=== PATIENT | male | born 1960 | race Caucasian/White ===

== ENCOUNTER 2024-09-04 13:16 | Inpatient (IN) | payer MEDICAID, OTHER ==
[~2024-09-04] VITALS: Ht 177.8 cm; Wt 102.7 kg
[2024-09-04 13:38] VITALS: RESP 24; O2SAT 92
--- NOTE | 2024-09-04 14:16 | ED.PDOC ---
SOB-HPI HPI Comments 63-year-old male with PMHx COPD presents with a chief complaint of SOB e xacerbation. Patient was a rapid response called overhead, was sating low on room air. Patient has COPD and states that his SOB has been getting worse over the past 2 weeks. Patient is having bilateral wheezing currently, but was placed on supplemental oxygen upon arrival to the ER. Chief Complaint: Shortness of Breath Time Seen by MD: 13:54 Reviewed notes: Medications, Allergies Information Source: Patient Mode of Arrival: Wheelchair Severity: Moderate Timing: Weeks Duration: Since onset Context: At Rest, With Light Exertion PE Risk Factors: None History of: COPD Prehospital treatment: None Past Medical History PAST MEDICAL HISTORY: COPD Surgical History: Denies all surgeries Family History Family History: Reviewed,noncontributory to illness Social History Smoker: Cigarettes Alcohol: Denies ETOH Use Drugs: Denies Drug Use Lives In: Home Constitutional: denies: chills, diaphoresis, fatigue, fever, malaise, sweats, weakness, others EENTM: denies: blurred vision, double vision, ear bleeding, ear discharge, ear drainage, ear pain, ear ringing, eye pain, eye redness, hearing loss, mouth pain, mouth swelling, nasal discharge, nose bleeding, nose congestion, nose pain, photophobia, tearing, throat pain, throat swelling, voice changes, others Respiratory: reports: SOB at rest, shortness of breath, SOB with excertion; denies: cough, hemoptysis, orthopnea, stridor, wheezing, others Cardiovascular: denies: chest pain, dizzy spells, diaphoresis, Dyspnea on exertion, edema, irregular heart beat, left arm pain, lightheadedness, palpitations, PND, syncope, others Gastrointestinal: denies: abdomen distended, abdominal pain, blood streaked bowels, constipated, diarrhea, dysphagia, difficulty swallowing, hematemesis, melena, nausea, poor appetite, poor fluid intake, rectal bleeding, rectal pain, vomiting, others Genitourinary: denies: burning, dysuria, flank pain, frequency, hematuria, incontinence, penile discharge, penile sore, pain, testicle pain, testicle swelling, urgency, others Neurological: denies: dizziness, fainting, headache, left sided numbness, left sided weakness, numbness, paresthesia, pre-existing deficit, right sided numbness, right sided weakness, seizure, speech problems, tingling, tremors, weakness, others Musculoskeletal: denies: back pain, gout, joint pain, joint swelling, muscle pain, muscle stiffness, neck pain, others Integumetry: denies: bruises, change in color, change in hair/nails, dryness, laceration, lesions, lumps, rash, wounds, others Allergic/Immunocompromised: denies: Difficulty Healing, Frequent Infections, Hives, Itching, others Hematologic/Lymphatic: denies: anemia, blood clots, easy bleeding, easy bruising, swollen glands, others Endocrine: denies: excessive hunger, excessive sweating, excessive thirst, excessive urination, flushing, intolerance to cold, intolerance to heat, unexplained weight gain, unexplained weight loss, others Psychiatric: denies: anxiety, bipolar disorder, depression, hopeless, panic disorder, schizophrenia, sleepless, suicidal, others All Other Systems: Reviewed and Negative Physical Exam General Appearance: No Apparent Distress, Normal HEENT: Normal ENT Inspection, Pharynx Normal, TMs Normal Neck: Full Range of Motion, Non-Tender, Normal, Normal Inspection Respiratory: Chest Non-Tender, Decreased Breath Sounds, Respiratory Distress, Wheezing Cardiovascular: No Edema, No JVD, No Murmur, No Gallop, Normal Peripheral Pulses, Regular Rate/Rhythm Breast Exam: Deferred Gastrointestinal: No Organomegaly, Non Tender, No Pulsatile Mass, Normal Bowel Sounds, Soft Genitalia: Deferred Pelvic: Deferred Rectal: Deferred Extremities: No calf tenderness, Normal capillary refill, Normal inspection, Normal range of motion, Non-tender, No pedal edema Musculoskeletal : Apperance: Normal Neurologic: Alert, care team coordinator scheduler II-XII nml as Tested, No Motor Deficits, Normal Affect, Normal Mood, No Sensory Deficits Cerebellar Function: Normal Reflexes: Normal Skin: Dry, Normal Color, Warm Lymphatic: No Adenopathy Was a procedure done? Was a procedure done?: No Differential Dx Differential Diagnosis: Anxiety, Asthma, Bronchitis, CHF, COPD, Hyperventilation, Panic Attack, Pneumonia, Pneumothorax, Respiratory Distress, URI X-Ray, Labs, Meds, VS Vital Signs Date Time Temp Pulse Resp B/P (MAP) Pulse Ox O2 Delivery O2 Flow Rate FiO2 09/04/24 14:38 18 92 Nasal Cannula* 2 28 09/04/24 13:42 98.3 90 24 101/59 (73) 92 98.3 09/04/24 13:38 24 92 Nasal Cannula* 2 28 09/04/24 13:36 94 Nasal Cannula* 2 09/04/24 13:21 96 09/04/24 13:20 98.5 92 26 115/70 (85) 95 98.5 Lab Test 09/04/24 13:17 Range/Units White Blood Count 7.5 4.4-10.8 10^3/uL Red Blood Count 6.07 H 4.5-5.90 10^6/uL Hemoglobin 16.3 13.5-17.5 g/dL Hematocrit 50.4 41.0-53.0 % Mean Corpuscular Volume 83.1 80.0-100.0 fL Mean Corpuscular Hemoglobin 26.8 L 28.0-32.0 pg Mean Corpuscular Hemoglobin Concent 32.2 32.0-36.0 g/dL Red Cell Distribution Width 18.0 H 11.8-14.3 % Platelet Count 296 140-450 10^3/uL Mean Platelet Volume 7.5 6.9-10.8 fL Neutrophils (%) (Auto) 55.0 37.0-80.0 % Lymphocytes (%) (Auto) 23.3 10.0-50.0 % Monocytes (%) (Auto) 14.8 H 0.0-12.0 % Eosinophils (%) (Auto) 6.3 0.0-7.0 % Basophils (%) (Auto) 0.6 0.0-2.0 % Neutrophils # (Auto) 4.1 1.6-8.6 10 ^3/uL Lymphocytes # (Auto) 1.7 0.4-5.4 10 ^3/uL Monocytes # (Auto) 1.1 0-1.3 10 ^3/uL Eosinophils # (Auto) 0.5 0-0.8 10 ^3/uL Basophils # (Auto) 0 0-0.2 10 ^3/uL Nucleated Red Blood Cells 0.2 % Sodium Level 144 136-145 mmol/L Potassium Level 4.1 3.5-5.1 mmol/L Chloride Level 107 98-107 mmol/L Carbon Dioxide Level 27 20-31 mmol/L Anion Gap 10 5-15 Blood Urea Nitrogen 14 9-23 mg/dL Creatinine 1.03 0.700-1.30 mg/dL Glomerular Filtration Rate Calc 81 >90 mL/min BUN/Creatinine Ratio 13.6 10.0-20.0 Serum Glucose 108 H 74-106 mg/dL Calcium Level 10.1 8.7-10.4 mg/dL Current Medications Medications (Trade) Dose Ordered Sig/Johana Route Start Time Stop Time Status Last Admin Albuterol (Ventolin Medneb) 20 mg ONCE ONCE NEB 09/04/24 14:15 09/04/24 14:16 DC 09/04/24 14:37 Ipratropium [place] (Atrovent Medneb) 0.5 mg ONCE ONCE NEB 09/04/24 14:15 09/04/24 14:16 DC 09/04/24 14:37 Time of 1ST Reevaluation: 14:24 Reevaluation 1ST: Unchanged Time of 2ND Reevaluation: 16:32 Reevaluation 2ND: Resolved Patient Education/Counseling: Diagnosis, Treatment, Prognosis, Need For Follow Up Family Education/Counseling: No Family Present Additional Information pt was wheezing throughout, but he also smoked. after treatments, he is now cl ear and sleeping. he wakes up easily and denies any symptoms. he also agreed to stop smoking. he is stable for discharge Departure 1 Departure Time of Disposition: 16:33 Impression: Primary Impression: COPD exacerbation Additional Impressions: Tobacco abuse Tobacco abuse counseling Disposition: 01 HOME / SELF CARE / HOMELESS Condition: Good e-Prescriptions Prednisone (Prednisone) 20 Mg Tab 20 MG PO DAILY for 5 Days, #5 TAB Prov: NEENA KUMAR MD 09/04/24 Discharged With: Self Critical Care Note Critical Care Time?: No Stability Stability form required: No Heart Score Heart Score: Heart Score Response (Comments) Value History N/A 0 EKG N/A 0 Age N/A 0 Risk Factors N/A 0 Troponin N/A 0 Total 0 I personally scribed for NEENA KUMAR MD ([email or web address]) on 09/04/24 at 14:15. Electronically submitted by Emmett Scott ([email or web address]). NEENA KUMAR MD September 04, 2024 14:15
[2024-09-04 14:28] LABS: Potassium 4.1 mmol/L (3.5-5.1); Sodium 144 mmol/L (136-145)
[2024-09-04 14:29] LABS: Anion Gap 10 (5-15); Basophils # (auto) 0 10 ^3/uL (0-0.2); Basophils % (auto) 0.6 % (0.0-2.0); Calcium 10.1 mg/dL (8.7-10.4); Carbon Dioxide 27 mmol/L (20-31); Eosinophils # (auto) 0.5 10 ^3/uL (0-0.8); Eosinophils % (auto) 6.3 % (0.0-7.0); Hematocrit 50.4 % (41.0-53.0); Hemoglobin 16.3 g/dL (13.5-17.5); Lymphocytes # (auto) 1.7 10 ^3/uL (0.4-5.4); Lymphocytes % (auto) 23.3 % (10.0-50.0); Mean Corpuscular Hemoglobin 26.8 pg (28.0-32.0); Mean Corpuscular Hgb Conc. 32.2 g/dL (32.0-36.0); Mean Corpuscular Volume 83.1 fL (80.0-100.0); Monocytes # (auto) 1.1 10 ^3/uL (0-1.3); Monocytes % (auto) 14.8 % (0.0-12.0); Neutrophils # (auto) 4.1 10 ^3/uL (1.6-8.6); Nucleated Red Blood Cells % 0.2 %; Platelet Count (auto) 296 10^3/uL (140-450); Red Blood Cells 6.07 10^6/uL (4.5-5.90); White Blood Cell 7.5 10^3/uL (4.4-10.8)
[2024-09-04 14:30] LABS: Chloride 107 mmol/L (98-107)
[2024-09-04 14:34] LABS: BUN/Creatinine Ratio 13.6 (10.0-20.0); Blood Urea Nitrogen 14 mg/dL (9-23)
[2024-09-04 14:37] LABS: Glucose 108 mg/dL (74-106)
[2024-09-04] MEDS: IPRATROPIUM BROM 0.5 MG/2.5ML INH SOL NEB ONE ×2 (14:37→19:46)
[2024-09-04] MEDS: ALBUTEROL SULF 2.5 MG/0.5ML(0.5%) NEB SOLN NEB ONE ×2 (14:37→19:46)
--- NOTE | 2024-09-04 16:00 | DVH ---
CHEST RADIOGRAPH Indication: sob Technique: Single frontal view of the chest was obtained Comparison: None FINDINGS: Lines and Tubes: None Lungs: No focal consolidation. Mild interstitial prominence. Pleura: No effusion. No pneumothorax. Cardiomediastinal contours: Unremarkable Bones: No acute osseous abnormality. IMPRESSION: Mild interstitial prominence which may be from senescent changes. Underlying pulmonary congestion ca n not be excluded
[2024-09-04] MEDS ORDERED: PRED20TA2 PO (16:34)
[2024-09-04] MEDS: methylPREDNISolone SOD SUCC 125 MG/2 ML VL IV ONE (17:28)
[2024-09-04] MEDS: MAGNESIUM SULFATE 1GM/100ML 100 ML IV ONE (17:28)
--- NOTE | 2024-09-04 23:23 | DVHHP2 ---
History of Present Illness Reason for Visit: SHORTNESS FOR BREATH History of Present Illness 63-year-old male presents for evaluation of shortness for breath. Patient reports a one-week history of worsening shortness for breath. He states inhaler and nebulizer at home are not helping. He does not use oxygen at home. He states today the symptoms became worse with associated wheezing. Denies chest pain or palpitations. No cough or fever. Past Medical History COPD, dyslipidemia, heart failure Past Surgical History Denies Family History Noncontributory Smoke: <1 pack per day ALCOHOL: occassional Drugs: None Lives: with Family Review of Systems Review of Systems Review of systems are negative otherwise addressed in HPI. Allergies: Coded Allergies: NO KNOWN ALLERGIES (Unverified , 09/04/24) Exam Vital Signs Vital Signs Date Time Temp Pulse Resp B/P (MAP) Pulse Ox O2 Delivery O2 Flow Rate FiO2 09/04/24 19:47 20 94 Nasal Cannula* 2 28 09/04/24 13:42 98.3 90 101/59 (73) 98.3 Exam Gen: 63-year-old male in mild distress Skin: Warm, dry, normal color and texture, no rash. HEENT: Normocephalic atraumatic, mucous membranes moist and pink. Neck: Cervical and supraclavicular nodes normal without enlargement, trachea is midline, thyroid gland is normal without masses. Pulmonary: Bilateral wheeze Cardiac: Regular rate and rhythm. No murmur Abdomen: Soft, nontender, nondistended, bowel sounds present all 4 quadrants, no guarding, no rigidity, no organomegaly. Extremities: No cyanosis, clubbing, no edema Neuro: Cranial nerves II through XII grossly intact, normal affect and speech, no focal motor deficits. Labs/Xrays ORDERING PHYSICIAN: NEENA KUMAR MD PROCEDURE(s): CXRP - CHEST PORTABLE REASON: sob ORDER NUMBER(s): [id number], ACCESSION NUMBER(s): [id number] CHEST RADIOGRAPH Indication: sob Technique: Single frontal view of the chest was obtained Comparison: None FINDINGS: Lines and Tubes: None Lungs: No focal consolidation. Mild interstitial prominence. Pleura: No effusion. No pneumothorax. Cardiomediastinal contours: Unremarkable Bones: No acute osseous abnormality. IMPRESSION: Mild interstitial prominence which may be from senescent changes. Underlying pulmonary congestion can not be excluded Labs Test 09/04/24 13:17 Range/Units White Blood Count 7.5 4.4-10.8 10^3/uL Red Blood Count 6.07 H 4.5-5.90 10^6/uL Hemoglobin 16.3 13.5-17.5 g/dL Hematocrit 50.4 41.0-53.0 % Mean Corpuscular Volume 83.1 80.0-100.0 fL Mean Corpuscular Hemoglobin 26.8 L 28.0-32.0 pg Mean Corpuscular Hemoglobin Concent 32.2 32.0-36.0 g/dL Red Cell Distribution Width 18.0 H 11.8-14.3 % Platelet Count 296 140-450 10^3/uL Mean Platelet Volume 7.5 6.9-10.8 fL Neutrophils (%) (Auto) 55.0 37.0-80.0 % Lymphocytes (%) (Auto) 23.3 10.0-50.0 % Monocytes (%) (Auto) 14.8 H 0.0-12.0 % Eosinophils (%) (Auto) 6.3 0.0-7.0 % Basophils (%) (Auto) 0.6 0.0-2.0 % Neutrophils # (Auto) 4.1 1.6-8.6 10 ^3/uL Lymphocytes # (Auto) 1.7 0.4-5.4 10 ^3/uL Monocytes # (Auto) 1.1 0-1.3 10 ^3/uL Eosinophils # (Auto) 0.5 0-0.8 10 ^3/uL Basophils # (Auto) 0 0-0.2 10 ^3/uL Nucleated Red Blood Cells 0.2 % Sodium Level 144 136-145 mmol/L Potassium Level 4.1 3.5-5.1 mmol/L Chloride Level 107 98-107 mmol/L Carbon Dioxide Level 27 20-31 mmol/L Anion Gap 10 5-15 Blood Urea Nitrogen 14 9-23 mg/dL Creatinine 1.03 0.700-1.30 mg/dL Glomerular Filtration Rate Calc 81 >90 mL/min BUN/Creatinine Ratio 13.6 10.0-20.0 Serum Glucose 108 H 74-106 mg/dL Calcium Level 10.1 8.7-10.4 mg/dL Assessment/Plan Assessment/Plan Assessment Acute on chronic hypoxic respiratory failure Continue treatment per orders. Plan Admit the patient to telemetry to the hospitalist Jj geller Azithromycin Resume home medications Continue treatment per orders. Plan discussed with: Patient My Orders Orders - MELINA CHOI Procedure Category Date Status Time Admit ADMIT 09/04/24 Transmitted 19:34 Date of Service: September 04, 2024 Billing Provider: MELINA CHOI Common Visit Codes: [id number] INP/OBS CARE (HIGH) MELINA CHOI September 04, 2024 23:23
[2024-09-05] VITALS (11 sets, daily range): BP systolic 101–143; BP diastolic 64–104; PULSE 73–96; RESP 15–28; TEMP 97.5–98.1; O2SAT 91–96
[2024-09-05] MEDS: PNEUMOCOCCAL VACC POLYS 25 MCG/0.5 ML VIAL IM ONE (02:15)
[2024-09-05] MEDS: AZITHROMYCIN 500MG/ 250ML 250 ML IV ONE (02:17)
[2024-09-05] MEDS ORDERED: APIX5TAB PO (03:55)
[2024-09-05] MEDS ORDERED: FER325T PO (03:55)
[2024-09-05] MEDS ORDERED: BUPR-60 PO (03:55)
[2024-09-05] MEDS ORDERED: POTA-36 PO (03:55)
[2024-09-05] MEDS ORDERED: CYCL-837 PO (03:55)
[2024-09-05] MEDS ORDERED: FURO20TA3 PO (03:55)
[2024-09-05] MEDS ORDERED: EZET-10 PO (03:55)
--- NOTE | 2024-09-05 09:16 | ECG ---
[facility] Test Date: 2024-09-04 Test Time: 13:21:52 Pat Name: KRISTY MEZA Department: ER Room: 0287 B Gender: M Social Scientist: GP : 1960 Requested By: AMANDA COLE Order Number: [id number] Reading MD: Janes Hernández Measurements Intervals [place] Rate: 96 P: 82 NH: 203 QRS: -69 QRSD: 109 T: 57 QT: 358 QTc: 453 Interpretive Statements Sinus rhythm LAD, consider left anterior fascicular block Low voltage, precordial leads Abnormal R-wave progression, late transition Minimal ST depression, lateral leads Minimal ST elevation, lateral leads Baseline wander in lead(s) I,aVR,V1,V5 Electronically Signed On 09-10-2024 11:16:20 PDT by Janes Hernández Please click the below link to view image of tracing.
[2024-09-05 10:50] LABS: Hepatitis B Surface Antigen Negative (Negative); Hepatitis C Antibody Negative (Negative)
[2024-09-05] MEDS: methylPREDNISolone SOD SUCC 40 MG/ML VL IV SCH (11:34)
[2024-09-05] MEDS: APIXABAN 5 MG TAB PO SCH (11:35)
[2024-09-05] MEDS: FUROSEMIDE 20 MG TAB PO SCH (11:35)
[2024-09-05] MEDS: AZITHROMYCIN 500MG/ 250ML 250 ML IV SCH (12:00)
[2024-09-05] MEDS: ATORVASTATIN 20 MG TAB PO SCH (22:09)
[2024-09-05] MEDS: ALBUTEROL SULF 2.5 MG/0.5ML(0.5%) NEB SOLN NEB PRN (22:35)
[2024-09-05] MEDS: IPRATROPIUM BROM 0.5 MG/2.5ML INH SOL NEB PRN (22:35)
[2024-09-06] VITALS (12 sets, daily range): BP systolic 102–148; BP diastolic 59–95; PULSE 70–100; RESP 16–28; TEMP 97.5–98.2; O2SAT 93–99
[2024-09-07] VITALS (14 sets, daily range): BP systolic 95–116; BP diastolic 56–81; PULSE 72–89; RESP 16–30; TEMP 97.6–98.7; O2SAT 93–99
--- NOTE | 2024-09-07 13:54 | DVHPN2 ---
Reviewed: Care Plan, H&P, Labs, Medications, Previous Orders, Radiology Changes from previous H/P or p: No Changes General: Per HPI Objective Vitals Vital Signs Date Time Temp Pulse Resp B/P (MAP) Pulse Ox O2 Delivery O2 Flow Rate FiO2 09/07/24 11:08 72 20 96 09/07/24 11:01 Nasal Cannula 4.0 09/07/24 11:01 36 09/07/24 09:16 110/81 09/07/24 09:00 97.6 97.6 Intake/Output Intake and Output 09/07/24 07:00 Intake Total 2348 ml Output Total 610 ml Balance 1738 ml Intake Oral 2098 ml IV Total 250 ml Output Urine Total 610 ml # Voids 10 Medications Current Medications Medications Dose Ordered Sig/Johana Route Start Time Stop Time Status Last Admin Dose Admin Methylprednisolone Sodium Succinate 40 mg BID IV 09/05/24 10:00 09/07/24 09:15 40 MG Azithromycin 250 ml @ 125 mls/hr DAILY IV 09/05/24 10:00 09/07/24 09:16 125 MLS/HR Furosemide 20 mg DAILY PO 09/05/24 10:00 09/07/24 09:16 20 MG Atorvastatin Calcium 40 mg HS PO 09/05/24 22:00 09/06/24 21:36 40 MG Apixaban 5 mg BID PO 09/05/24 10:00 09/07/24 09:16 5 MG Albuterol 2.5 mg Q6HPRN PRN NEB 09/05/24 22:15 09/07/24 11:01 2.5 MG Ipratropium [place] 0.5 mg Q6HPRN PRN NEB 09/05/24 22:15 09/07/24 11:01 0.5 MG Laboratory Results Laboratory Tests 09/04/24 13:17 Assessment/Plan Assessment/Plan acute hypoxic resp failure suspected pna (gram positive) dyspnea obesity 09/05/2024 pt is on empirical iv abx also on supplement O2 Plan discussed with: Patient My Orders Orders - VASQUEZ WILKINS DO Procedure Category Date Status Time Abg W/ Co-Ox RT 09/07/24 Verified 13:52 Date of Service: September 05, 2024 Billing Provider: VASQUEZ WILKINS DO Common Visit Codes: [id number] INP/OBS CARE(HIGH) VASQUEZ WILKINS DO September 07, 2024 13:54
--- NOTE | 2024-09-07 13:55 | DVHPN2 ---
Reviewed: Care Plan, H&P, Labs, Medications, Previous Orders, Radiology Changes from previous H/P or p: No Changes General: Per HPI Objective Vitals Vital Signs Date Time Temp Pulse Resp B/P (MAP) Pulse Ox O2 Delivery O2 Flow Rate FiO2 09/07/24 11:08 72 20 96 09/07/24 11:01 Nasal Cannula 4.0 09/07/24 11:01 36 09/07/24 09:16 110/81 09/07/24 09:00 97.6 97.6 Intake/Output Intake and Output 09/07/24 07:00 Intake Total 2348 ml Output Total 610 ml Balance 1738 ml Intake Oral 2098 ml IV Total 250 ml Output Urine Total 610 ml # Voids 10 General Appearance: Alert, Oriented X3, Cooperative HEENT: Atraumatic Cardiovascular: Regular rate, Normal S1, Normal S2 Neuro: Normal gait, Normal speech Medications Current Medications Medications Dose Ordered Sig/Johana Route Start Time Stop Time Status Last Admin Dose Admin Methylprednisolone Sodium Succinate 40 mg BID IV 09/05/24 10:00 09/07/24 09:15 40 MG Azithromycin 250 ml @ 125 mls/hr DAILY IV 09/05/24 10:00 09/07/24 09:16 125 MLS/HR Furosemide 20 mg DAILY PO 09/05/24 10:00 09/07/24 09:16 20 MG Atorvastatin Calcium 40 mg HS PO 09/05/24 22:00 09/06/24 21:36 40 MG Apixaban 5 mg BID PO 09/05/24 10:00 09/07/24 09:16 5 MG Albuterol 2.5 mg Q6HPRN PRN NEB 09/05/24 22:15 09/07/24 11:01 2.5 MG Ipratropium [place] 0.5 mg Q6HPRN PRN NEB 09/05/24 22:15 09/07/24 11:01 0.5 MG Laboratory Results Laboratory Tests 09/04/24 13:17 Labs and/or images reviewed: Labs reviewed by me, Image(s) reviewed by me Assessment/Plan Assessment/Plan acute hypoxic resp failure suspected pna (gram positive) dyspnea obesity 09/05/2024 pt is on empirical iv abx also on supplement O2 09/06/2024: continue with empirical iv abx continue with supplement O2 09/07/2024: obtaining ABG pt may need home O2 Plan discussed with: Patient My Orders Orders - VASQUEZ WILKINS DO Procedure Category Date Status Time Abg W/ Co-Ox RT 09/07/24 Verified 13:52 Date of Service: September 07, 2024 Billing Provider: VASQUEZ WILKINS DO Common Visit Codes: [id number] INP/OBS CARE(HIGH) VASQUEZ WILKINS DO September 07, 2024 13:55
--- NOTE | 2024-09-07 13:55 | DVHPN2 ---
Reviewed: Care Plan, H&P, Labs, Medications, Previous Orders, Radiology Changes from previous H/P or p: No Changes General: Per HPI Objective Vitals Vital Signs Date Time Temp Pulse Resp B/P (MAP) Pulse Ox O2 Delivery O2 Flow Rate FiO2 09/07/24 11:08 72 20 96 09/07/24 11:01 Nasal Cannula 4.0 09/07/24 11:01 36 09/07/24 09:16 110/81 09/07/24 09:00 97.6 97.6 Intake/Output Intake and Output 09/07/24 07:00 Intake Total 2348 ml Output Total 610 ml Balance 1738 ml Intake Oral 2098 ml IV Total 250 ml Output Urine Total 610 ml # Voids 10 General Appearance: Alert, Oriented X3, Cooperative Cardiovascular: Regular rate, Normal S1, Normal S2 Neuro: Normal gait, Normal speech Medications Current Medications Medications Dose Ordered Sig/Johana Route Start Time Stop Time Status Last Admin Dose Admin Methylprednisolone Sodium Succinate 40 mg BID IV 09/05/24 10:00 09/07/24 09:15 40 MG Azithromycin 250 ml @ 125 mls/hr DAILY IV 09/05/24 10:00 09/07/24 09:16 125 MLS/HR Furosemide 20 mg DAILY PO 09/05/24 10:00 09/07/24 09:16 20 MG Atorvastatin Calcium 40 mg HS PO 09/05/24 22:00 09/06/24 21:36 40 MG Apixaban 5 mg BID PO 09/05/24 10:00 09/07/24 09:16 5 MG Albuterol 2.5 mg Q6HPRN PRN NEB 09/05/24 22:15 09/07/24 11:01 2.5 MG Ipratropium [place] 0.5 mg Q6HPRN PRN NEB 09/05/24 22:15 09/07/24 11:01 0.5 MG Laboratory Results Laboratory Tests 09/04/24 13:17 Labs and/or images reviewed: Labs reviewed by me, Image(s) reviewed by me Assessment/Plan Assessment/Plan acute hypoxic resp failure suspected pna (gram positive) dyspnea obesity 09/05/2024 pt is on empirical iv abx also on supplement O2 09/06/2024: continue with empirical iv abx continue with supplement O2 Plan discussed with: Patient My Orders Orders - VASQUEZ WILKINS DO Procedure Category Date Status Time Abg W/ Co-Ox RT 09/07/24 Verified 13:52 Date of Service: September 06, 2024 Billing Provider: VASQUEZ WILKINS DO Common Visit Codes: [id number] INP/OBS CARE(HIGH) VASQUEZ WILKINS DO September 07, 2024 13:54
[2024-09-07 14:08] LABS: Base Excess 3.1 mmol/L (-2.0-3.0)
[2024-09-08] VITALS (12 sets, daily range): BP systolic 97–111; BP diastolic 63–70; PULSE 60–97; RESP 18–20; TEMP 97.7–98.9; O2SAT 87–97
[2024-09-08] MEDS: IPRATROPIUM BROM 0.5 MG/2.5ML INH SOL NEB SCH (00:31)
[2024-09-08] MEDS: ALBUTEROL SULF 2.5 MG/0.5ML(0.5%) NEB SOLN NEB SCH (00:31)
[2024-09-08 09:31] LABS: Basophils # (auto) 0 10 ^3/uL (0-0.2); Basophils % (auto) 0.2 % (0.0-2.0); Eosinophils # (auto) 0 10 ^3/uL (0-0.8); Hematocrit 50.3 % (41.0-53.0); Hemoglobin 16.2 g/dL (13.5-17.5); Lymphocytes # (auto) 0.9 10 ^3/uL (0.4-5.4); Lymphocytes % (auto) 7.5 % (10.0-50.0); Mean Corpuscular Hemoglobin 26.6 pg (28.0-32.0); Mean Corpuscular Hgb Conc. 32.3 g/dL (32.0-36.0); Mean Corpuscular Volume 82.6 fL (80.0-100.0); Monocytes # (auto) 0.7 10 ^3/uL (0-1.3); Monocytes % (auto) 5.5 % (0.0-12.0); Neutrophils # (auto) 10.8 10 ^3/uL (1.6-8.6); Neutrophils % (auto) 86.8 % (37.0-80.0); Platelet Count (auto) 285 10^3/uL (140-450); Red Blood Cells 6.09 10^6/uL (4.5-5.90); Red Cell Distribution Width 17.6 % (11.8-14.3); White Blood Cell 12.5 10^3/uL (4.4-10.8)
[2024-09-08 09:42] LABS: Chloride 103 mmol/L (98-107); Potassium 4.2 mmol/L (3.5-5.1); Sodium 142 mmol/L (136-145)
[2024-09-08 09:43] LABS: Anion Gap 10 (5-15); Calcium 9.8 mg/dL (8.7-10.4); Carbon Dioxide 29 mmol/L (20-31)
[2024-09-08 09:48] LABS: BUN/Creatinine Ratio 28.6 (10.0-20.0)
[2024-09-08 09:51] LABS: Blood Urea Nitrogen 26 mg/dL (9-23); Glucose 177 mg/dL (74-106)
--- NOTE | 2024-09-08 14:22 | DVHPN2 ---
Reviewed: Care Plan, H&P, Labs, Medications, Previous Orders, Radiology General: Per HPI Objective Vitals Vital Signs Date Time Temp Pulse Resp B/P (MAP) Pulse Ox O2 Delivery O2 Flow Rate FiO2 09/08/24 11:36 74 18 96 09/08/24 11:24 Nasal Cannula* 3 32 09/08/24 09:16 97/63 09/08/24 09:00 97.7 97.7 Intake/Output Intake and Output 09/08/24 07:00 Intake Total 2130 ml Output Total 4400 ml Balance -2270 ml Intake Oral 1880 ml IV Total 250 ml Output Urine Total 4400 ml # Bowel Movements 2 General Appearance: Alert, Oriented X3, Cooperative HEENT: Atraumatic Cardiovascular: Regular rate, Normal S1, Normal S2 Neuro: Normal gait, Normal speech Medications Current Medications Medications Dose Ordered Sig/Johana Route Start Time Stop Time Status Last Admin Dose Admin Methylprednisolone Sodium Succinate 40 mg BID IV 09/05/24 10:00 09/08/24 09:17 40 MG Azithromycin 250 ml @ 125 mls/hr DAILY IV 09/05/24 10:00 09/08/24 09:26 125 MLS/HR Furosemide 20 mg DAILY PO 09/05/24 10:00 09/08/24 09:16 20 MG Atorvastatin Calcium 40 mg HS PO 09/05/24 22:00 09/07/24 21:07 40 MG Apixaban 5 mg BID PO 09/05/24 10:00 09/08/24 09:16 5 MG Albuterol 2.5 mg Q6HPRN PRN NEB 09/05/24 22:15 09/07/24 19:00 2.5 MG Ipratropium [place] 0.5 mg Q6HPRN PRN NEB 09/05/24 22:15 09/07/24 19:00 0.5 MG Albuterol 2.5 mg Q6HR NEB 09/08/24 00:00 09/08/24 11:24 2.5 MG Ipratropium [place] 0.5 mg Q6HR NEB 09/08/24 00:00 09/08/24 11:24 0.5 MG Laboratory Results Laboratory Tests 09/08/24 09:15 Chemistry Test 09/08/24 09:15 Calcium Level 9.8 mg/dL (8.7-10.4) STEFANIE HEARD MD September 08, 2024 14:22
--- NOTE | 2024-09-08 15:07 | DVHDS2 ---
Discharge Summary Date of Admission September 04, 2024 at 19:34 Date of Discharge: September 08, 2024 Admitting Diagnosis acute hypoxic resp failure suspected pna (gram positive) dyspnea obesity Labs/Diagnostic Data: Laboratory Results Test 09/08/24 09:15 09/07/24 14:02 09/04/24 23:20 White Blood Count 12.5 10^3/uL (4.4-10.8) Red Blood Count 6.09 10^6/uL (4.5-5.90) Hemoglobin 16.2 g/dL (13.5-17.5) Hematocrit 50.3 % (41.0-53.0) Mean Corpuscular Volume 82.6 fL (80.0-100.0) Mean Corpuscular Hemoglobin 26.6 pg (28.0-32.0) Mean Corpuscular Hemoglobin Concent 32.3 g/dL (32.0-36.0) Red Cell Distribution Width 17.6 % (11.8-14.3) Platelet Count 285 10^3/uL (140-450) Mean Platelet Volume 7.6 fL (6.9-10.8) Neutrophils (%) (Auto) 86.8 % (37.0-80.0) Lymphocytes (%) (Auto) 7.5 % (10.0-50.0) Monocytes (%) (Auto) 5.5 % (0.0-12.0) Eosinophils (%) (Auto) 0.0 % (0.0-7.0) Basophils (%) (Auto) 0.2 % (0.0-2.0) Neutrophils # (Auto) 10.8 10 ^3/uL (1.6-8.6) Lymphocytes # (Auto) 0.9 10 ^3/uL (0.4-5.4) Monocytes # (Auto) 0.7 10 ^3/uL (0-1.3) Eosinophils # (Auto) 0 10 ^3/uL (0-0.8) Basophils # (Auto) 0 10 ^3/uL (0-0.2) Nucleated Red Blood Cells 0.0 % Sodium Level 142 mmol/L (136-145) Potassium Level 4.2 mmol/L (3.5-5.1) Chloride Level 103 mmol/L (98-107) Carbon Dioxide Level 29 mmol/L (20-31) Anion Gap 10 (5-15) Blood Urea Nitrogen 26 mg/dL (9-23) Creatinine 0.91 mg/dL (0.700-1.30) Glomerular Filtration Rate Calc 93 mL/min (>90) BUN/Creatinine Ratio 28.6 (10.0-20.0) Serum Glucose 177 mg/dL (74-106) Calcium Level 9.8 mg/dL (8.7-10.4) Blood Gas Specimen Type Arterial Blood Gas Sample Site Right radial Blood Gas Patient Temperature 37.0 Arterial Blood Date Drawn Arterial Blood pH 7.428 (7.350-7.450) Arterial Blood Partial Pressure CO2 43.2 mmHg (35.0-48.0) Arterial Blood Partial Pressure O2 74.1 mmHg (83.0-108.0) Arterial Blood HCO3 27.9 mmol/L (21.0-28.0) Arterial Blood Oxygen Saturation 94.8 % (94.0-98.0) Arterial Blood Base Excess 3.1 mmol/L (-2.0-3.0) Arterial Blood Oxyhemoglobin 93.8 % (94.0-98.0) Arterial Blood Carboxyhemoglobin 0.7 % (0.5-1.5) Arterial Blood Methemoglobin 0.4 % (0.0-1.5) Haider Test Yes Blood Gas Total Hemoglobin 16.50 g/dL (13.5-17.5) Blood Gas Modality Nasal cannula FiO2 % 36.0 D-Dimer, Quantitative 0.22 mg/L FEU (0.0-0.49) B-Type Natriuretic Peptide 67.68 pg/mL (0-100) Hepatitis B Surface Antigen Negative (Negative) Hepatitis C Antibody Negative (Negative) Other Laboratory Tests 09/08/24 09:15 Brief Hx & Hospital Course: This is a 64 years old male with past medical history of COPD came to emergency department because of severe shortness for breath. Patient had one week of worsening shortness for breath. He used inhaler and nebulizer at home but did not help. So the patient come to hospital for further evaluation. The patient was admitted. X-ray showed possible pneumonia. The patient was treated for Gram-positive bacteria pneumonia with a Zithromax 500 mg IV q.day. Patient also was put on Solu-Medrol and nebulizer. Patient subsequently doing well. Today he weaned off oxygen. He was able to ambulate without severe shortness for breath. No cough no fever or chill. I am going to discharge him home. Advised him to follow up with primary care physician 1-2 weeks. 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 Activity as tolerated. Diet per home diet. Recommend low-salt low-cholesterol diet Physical exam: HEENT: Normocephalic atraumatic pupils equal react to light and accommodation. Extraocular muscles intact, conjunctiva pink, oropharynx moist, no thrush, no exudate. Lymphatic: No lymphadenopathy Cardiovascular exam: S1, S2 was heard. No murmurs, rubs, gallops Lung: Clear on auscultation bilaterally, no wheeze, rale, rhonchi. GI: Abdominal soft, nondistended, nontenderness, positive bowel sounds. Extremity: No crepitus, cyanosis, edema. Pedal pulses present bilateral. Full range of motion. Skin: Normal turgor, no rash. Psych: Alert, oriented x3. Neurology: No focal deficits, cranial nerve II to XII grossly intact. This medical document was created using an electronic medical record system with [employer] direct computerized dictation system. Although this document has been carefully reviewed, there may still be some phonetic and typographical errors. These areas are purely typographical due to imperfections of the software programs, and do not reflect any compromise in the patient's medical care. Condition at Discharge: Stable Final Diagnosis/Problems List acute hypoxic resp failure COPD Gram-positive pneumonia dyspnea obesity Discharge Disposition: Home Discharge Statement: "Patient was advised to return to the ER or call 911 if any headaches, dizziness, shortness of breath, chest pain, abdominal pain, bleeding, fevers, or worsening of medical condition. Patient was counseled about treatment plan, medications, possible side effects, patientverbalized understanding. All questions were answered to the best of my ability. This discharge took greater then 30 minutes in planning, reviewing documentation, counseling the patient, and discussing with other team members." ASSESSMENT ASSESSMENT Assessment Date of Service: September 08, 2024 Billing Provider: STEFANIE HEARD MD Common Visit Codes: 41011-DSJ/OBS DISCH DAY >30min STEFANIE HEARD MD September 08, 2024 15:07
[2024-09-08] MEDS ORDERED: AZIT-185 PO (15:08)
[2024-09-08] MEDS ORDERED: METH4PAK3 PO (15:12)
--- NOTE | 2024-09-08 16:32 | DVHINCON2 ---
Date of service: September 06, [address] Carter Reason for Consultation Acute respiratory failure History of Present Illness History Source: Patient Exam Limitations: No limitations HPI Patient is a 64-year old gentleman with a history of COPD and smoker of 1 PPD who presented with shortness of breath and white/yellow sputum. Was seen in the emergency room where he was admitted for symptoms consistent with acute exacerbation of COPD and pulmonology was consulted to assist in management. Chest x-ray shows congestion. Home Meds Active Scripts Methylprednisolone (Methylprednisolone Dose P) 4 Mg Tab, 4 MG PO DAILY, #21 TAB take 6 tablets the first day, then 5 tablets the 2nd day, then 4 tablets the 3rd day,then 3 tablet the 4th day, then 2 tablets the 5th day, then 1 tablet the sixth day. Prov:STEFANIE HEARD MD 09/08/24 Azithromycin (ZITHROMAX TABLET) 250 Mg Tb, 250 MG PO DAILY, #6 TAB take 2 tablets the first day then 1 tab daily until finish Prov:STEFANIE HEARD MD 09/08/24 Reported Medications Cyclobenzaprine Hcl (Cyclobenzaprine Hcl) 5 Mg Tab, 5 MG PO DAILY, TAB 09/05/24 Potassium Chloride (POTASSIUM CHLORIDE CR) 10 Meq Tb, 10 MEQ PO DAILY, TAB 09/05/24 Ferrous Sulfate (FERROUS SULFATE) 325 Mg Tb, 325 MG PO DAILY, TAB 09/05/24 Bupropion Hcl (Bupropion Hcl Sr) 150 Mg Tab, 150 MG PO BID, TAB 09/05/24 Furosemide (Furosemide) 20 Mg Tab, 1 TAB PO DAILY, #90 TAB 1 Refill 09/05/24 Apixaban Base (ELIQUIS) 5 Mg Tab, 5 MG PO BID, TAB 09/05/24 Ezetimibe (Ezetimibe) 10 Mg Tab, 10 MG PO DAILY, TAB 09/05/24 Discontinued Scripts Prednisone (Prednisone) 20 Mg Tab, 20 MG PO DAILY for 5 Days, #5 TAB Prov:NEENA KUMAR MD 09/04/24 Past Medical History Cardiac: No pertinent Hx Pulmonary: COPD Central Nervous System: No pertinent Hx GI: No pertinent Hx Hemotology/Oncology: No pertinent Hx Hepatobiliary: No pertinent Hx Psychiatric: No pertinent Hx Musculoskeletal: No pertinent Hx Rheumotologic: No pertinent Hx Infectious Disease: No peritnent Hx ENT: No pertinent Hx Renal/: No pertinent Hx Endocrine: No pertinent Hx Dermatology: No pertinent Hx Past Surgical History: No pertinent Hx Family History: DM Patient Family History: Diabetes mellitus G8 MOTHER FH: dementia G8 FATHER Smoker: Positive, 1 pack per day Alocohol: None Drugs: None Lives with: With family Domestic Violence: Neg Review of Systems Constitutional: No symptom reported Ears, Nose, & Throat: No symptom reported Eyes: No symptom reported Pulmonary/Respiratory: Dyspnea, Cough Cardiovascular: No symptom reported Gastrointestinal: No symptom reported Genitourinary: No symptom reported Musculoskeletal: No symptom reported Skin: No symptom reported Psychiatric: No symptom reported Endocrine: No symptom reported Hemotologic/Lymphatic: No symptom reported H&P Exam Vital Signs Vital Signs Date Time Temp Pulse Resp B/P (MAP) Pulse Ox O2 Delivery O2 Flow Rate FiO2 09/08/24 13:00 97.8 97 19 111/69 (83 89 97.8 09/08/24 11:24 Nasal Cannula* 3 32 General Appeara: Well developed, Well nourished, Normal Appearance Head Exam: Normal inspection Neck Exam: Normal inspection, Non-tender, Normal alignment Eye Exam: bilateral eye Normal inspection, bilateral eye PERRL, bilateral eye EOMI Ear Exam: bilateral ear Auricle normal, bilateral ear Canal normal, bilateral ear TM normal Nasal Exam: Normal inspection Mouth: Normal Inspection Pulmonary/Respiratory: Normal inspection, Normal breath sounds, Chest non- tender, Lungs clear Cardiovascular/Chest: Normal inspection, Regular rate, Normal Rhythm Peripheral Pulses: 4+ Radial (R), 4+ Radial (L), 4+ Brachial (R), 4+ Brachial (L) Abdominal Exam: Normal bowel sounds Labs/Xrays Labs Test 09/08/24 09:15 09/07/24 14:02 09/04/24 23:20 Range/Units White Blood Count 12.5 #H 4.4-10.8 10^3/uL Red Blood Count 6.09 H 4.5-5.90 10^6/uL Hemoglobin 16.2 13.5-17.5 g/dL Hematocrit 50.3 41.0-53.0 % Mean Corpuscular Volume 82.6 80.0-100.0 fL Mean Corpuscular Hemoglobin 26.6 L 28.0-32.0 pg Mean Corpuscular Hemoglobin Concent 32.3 32.0-36.0 g/dL Red Cell Distribution Width 17.6 H 11.8-14.3 % Platelet Count 285 140-450 10^3/uL Mean Platelet Volume 7.6 6.9-10.8 fL Neutrophils (%) (Auto) 86.8 H 37.0-80.0 % Lymphocytes (%) (Auto) 7.5 L 10.0-50.0 % Monocytes (%) (Auto) 5.5 0.0-12.0 % Eosinophils (%) (Auto) 0.0 0.0-7.0 % Basophils (%) (Auto) 0.2 0.0-2.0 % Neutrophils # (Auto) 10.8 H 1.6-8.6 10 ^3/uL Lymphocytes # (Auto) 0.9 0.4-5.4 10 ^3/uL Monocytes # (Auto) 0.7 0-1.3 10 ^3/uL Eosinophils # (Auto) 0 0-0.8 10 ^3/uL Basophils # (Auto) 0 0-0.2 10 ^3/uL Nucleated Red Blood Cells 0.0 % Sodium Level 142 136-145 mmol/L Potassium Level 4.2 3.5-5.1 mmol/L Chloride Level 103 98-107 mmol/L Carbon Dioxide Level 29 20-31 mmol/L Anion Gap 10 5-15 Blood Urea Nitrogen 26 H 9-23 mg/dL Creatinine 0.91 0.700-1.30 mg/dL Glomerular Filtration Rate Calc 93 >90 mL/min BUN/Creatinine Ratio 28.6 H 10.0-20.0 Serum Glucose 177 H 74-106 mg/dL Calcium Level 9.8 8.7-10.4 mg/dL Blood Gas Specimen Type Arterial Blood Gas Sample Site Right radial Blood Gas Patient Temperature 37.0 Arterial Blood Date Drawn [id number] Arterial Blood pH 7.428 7.350-7.450 Arterial Blood Partial Pressure CO2 43.2 35.0-48.0 mmHg Arterial Blood Partial Pressure O2 74.1 L 83.0-108.0 mmHg Arterial Blood HCO3 27.9 21.0-28.0 mmol/L Arterial Blood Oxygen Saturation 94.8 94.0-98.0 % Arterial Blood Base Excess 3.1 H -2.0-3.0 mmol/L Arterial Blood Oxyhemoglobin 93.8 L 94.0-98.0 % Arterial Blood Carboxyhemoglobin 0.7 0.5-1.5 % Arterial Blood Methemoglobin 0.4 0.0-1.5 % Haider Test Yes Blood Gas Total Hemoglobin 16.50 13.5-17.5 g/dL Blood Gas Modality Nasal cannula FiO2 % 36.0 D-Dimer, Quantitative 0.22 0.0-0.49 mg/L FEU B-Type Natriuretic Peptide 67.68 0-100 pg/mL Hepatitis B Surface Antigen Negative Negative Hepatitis C Antibody Negative Negative Assessment/Plan Plan Impression Acute hypoxemic respiratory failure Acute COPD exacerbation Atelectasis Smoker Dyspnea Patient seen and examined Events Low oxygen requirements On 3 liters nasal cannula Vital signs stable Labs and imaging reviewed Chest x-ray shows congestion Management Supplemental oxygen Titrate to maintain sats 90% or above Incentive spirometry Antibiotics Bronchodilators Steroids for COPD management Diurese Monitor renal function Monitor electrolytes Supplement as needed DVT prophylaxis Plan discussed with: Patient ROOSEVELT YANES MD September 08, 2024 16:32
--- NOTE | 2024-09-08 16:33 | DVHPN2 ---
Progress Note - Dictate Date Seen: September 07, 2024 Medical Necessity Reason Pt with a Central, PICC or Fol: No vital signs Vital Sign Date Time Temp Pulse Resp B/P (MAP) Pulse Ox O2 Delivery O2 Flow Rate FiO2 09/08/24 13:00 97.8 97 19 111/69 (83) 89 97.8 09/08/24 11:24 Nasal Cannula* 3 32 Total Intake and Output 09/07/24 09/07/24 09/08/24 15:00 23:00 07:00 Intake Total 250 ml 1480 ml 400 ml Output Total 2000 ml 2400 ml Balance 250 ml -520 ml -2000 ml medications Current Medications Medications Dose Ordered Sig/Johana Route Start Time Stop Time Status Last Admin Dose Admin Methylprednisolone Sodium Succinate 40 mg BID IV 09/05/24 10:00 09/08/24 09:17 40 MG Azithromycin 250 ml @ 125 mls/hr DAILY IV 09/05/24 10:00 09/08/24 09:26 125 MLS/HR Furosemide 20 mg DAILY PO 09/05/24 10:00 09/08/24 09:16 20 MG Atorvastatin Calcium 40 mg HS PO 09/05/24 22:00 09/07/24 21:07 40 MG Apixaban 5 mg BID PO 09/05/24 10:00 09/08/24 09:16 5 MG Albuterol 2.5 mg Q6HPRN PRN NEB 09/05/24 22:15 09/07/24 19:00 2.5 MG Ipratropium [place] 0.5 mg Q6HPRN PRN NEB 09/05/24 22:15 09/07/24 19:00 0.5 MG Albuterol 2.5 mg Q6HR NEB 09/08/24 00:00 09/08/24 11:24 2.5 MG Ipratropium [place] 0.5 mg Q6HR NEB 09/08/24 00:00 09/08/24 11:24 0.5 MG laboratory and microbiology Laboratory Tests 09/08/24 09:15 Test 09/08/24 09:15 Range/Units Serum Glucose 177 H 74-106 mg/dL Assessment/Plan Impression Acute hypoxemic respiratory failure Acute COPD exacerbation Atelectasis Smoker Dyspnea Patient seen and examined Events Low oxygen requirements On 3 liters nasal cannula No acute events Labs and imaging reviewed Chest x-ray shows congestion Management Supplemental oxygen Titrate to maintain sats 90% or above Incentive spirometry Continue antibiotics Bronchodilators Steroids for COPD management Diurese Monitor renal function Monitor electrolytes Supplement as needed DVT prophylaxis Plan discussed with: Patient ROOSEVELT YANES MD September 08, 2024 16:33
--- NOTE | 2024-09-08 16:33 | DVHPN2 ---
Progress Note - Dictate Date Seen: September 08, 2024 Medical Necessity Reason Pt with a Central, PICC or Fol: No vital signs Vital Sign Date Time Temp Pulse Resp B/P (MAP) Pulse Ox O2 Delivery O2 Flow Rate FiO2 09/08/24 13:00 97.8 97 19 111/69 (83) 89 97.8 09/08/24 11:24 Nasal Cannula* 3 32 Total Intake and Output 09/07/24 09/07/24 09/08/24 15:00 23:00 07:00 Intake Total 250 ml 1480 ml 400 ml Output Total 2000 ml 2400 ml Balance 250 ml -520 ml -2000 ml medications Current Medications Medications Dose Ordered Sig/Johana Route Start Time Stop Time Status Last Admin Dose Admin Methylprednisolone Sodium Succinate 40 mg BID IV 09/05/24 10:00 09/08/24 09:17 40 MG Azithromycin 250 ml @ 125 mls/hr DAILY IV 09/05/24 10:00 09/08/24 09:26 125 MLS/HR Furosemide 20 mg DAILY PO 09/05/24 10:00 09/08/24 09:16 20 MG Atorvastatin Calcium 40 mg HS PO 09/05/24 22:00 09/07/24 21:07 40 MG Apixaban 5 mg BID PO 09/05/24 10:00 09/08/24 09:16 5 MG Albuterol 2.5 mg Q6HPRN PRN NEB 09/05/24 22:15 09/07/24 19:00 2.5 MG Ipratropium [place] 0.5 mg Q6HPRN PRN NEB 09/05/24 22:15 09/07/24 19:00 0.5 MG Albuterol 2.5 mg Q6HR NEB 09/08/24 00:00 09/08/24 11:24 2.5 MG Ipratropium [place] 0.5 mg Q6HR NEB 09/08/24 00:00 09/08/24 11:24 0.5 MG laboratory and microbiology Laboratory Tests 09/08/24 09:15 Test 09/08/24 09:15 Range/Units Serum Glucose 177 H 74-106 mg/dL Assessment/Plan Impression Acute hypoxemic respiratory failure Acute COPD exacerbation Atelectasis Smoker Dyspnea Patient seen and examined Events Low oxygen requirements On 3 liters nasal cannula No distress Labs and imaging reviewed Chest x-ray shows congestion Management Supplemental oxygen Titrate to maintain sats 90% or above Incentive spirometry Continue antibiotics Bronchodilators Steroids for COPD management Diurese Monitor renal function Monitor electrolytes Supplement as needed DVT prophylaxis Smoking cessation counseling provided Patient continues to smoke nicotine products daily Nicotine supplementation was discussed at the bedside An additional 12 minutes was spent in counseling Plan discussed with: Patient ROOSEVELT YANES MD September 08, 2024 16:33
== END 2024-09-08 16:35 | disposition home or self-care (01) | DRG 193 ==
LOC: ER 13:18 → OVERFLOW 19:34 → WEST WING 19:35
PROVIDERS: ADMIT Internal Medicine; ATTEND Internal Medicine
DX: J15.9 Unspecified bacterial pneumonia (principal); J96.01 Acute respiratory failure with hypoxia; J44.1 Chronic obstructive pulmonary disease with (acute) exacerbation; J98.11 Atelectasis; F17.210 Nicotine dependence, cigarettes, uncomplicated; E78.5 Hyperlipidemia, unspecified; E66.9 Obesity, unspecified; I50.9 Heart failure, unspecified; Z79.01 Long term (current) use of anticoagulants; Z83.3 Family history of diabetes mellitus; Z79.899 Other long term (current) drug therapy; Z68.33 Body mass index [BMI] 33.0-33.9, adult; Z71.6 Tobacco abuse counseling
CPT/HCPCS: 36415; 36600; 71045; 80048; 82805; 83880; 85025; 85379; 86803; 87340; 93005; 94640; 96365; 96375; G0378

== ENCOUNTER 2025-02-02 20:35 | Inpatient (IN) | payer MEDICAID, MEDICARE ==
[~2025-02-02] VITALS: Ht 177.8 cm; Wt 104.5 kg
[~2025-02-02 20:35] MED LIST: APIX5TAB PO; AZIT-185 PO; BUPR-60 PO; CYCL-837 PO; EZET-10 PO; FER325T PO; FURO20TA3 PO; METH4PAK3 PO; POTA-36 PO
--- NOTE | 2025-02-02 21:04 | ED.PDOC ---
SOB-HPI HPI Comments 64-year-old male who came the ER for shortness of breath. Patient has history of COPD, he is on oxygen. Patient has been experiencing shortness of breath all day today, progressively worsening, unable to speak in full sentences. Denies any fever or chest pains. Saturating 95% at 2 L/min on arrival Chief Complaint: Shortness of Breath Time Seen by MD: 21:04 Reviewed notes: Nurses Notes Information Source: Patient Mode of Arrival: Wheelchair Severity: Moderate Timing: Hours Duration: Since onset Context: At Rest, With Light Exertion History of: COPD Prehospital treatment: Oxygen Past Medical History PAST MEDICAL HISTORY: COPD Surgical History: Denies all surgeries Family History Family History: Reviewed,noncontributory to illness Social History Smoker: Cigarettes Alcohol: Denies ETOH Use Drugs: Denies Drug Use Lives In: Home Constitutional: denies: chills, diaphoresis, fatigue, fever, malaise, sweats, weakness, others EENTM: denies: blurred vision, double vision, ear bleeding, ear discharge, ear drainage, ear pain, ear ringing, eye pain, eye redness, hearing loss, mouth pain, mouth swelling, nasal discharge, nose bleeding, nose congestion, nose pain, photophobia, tearing, throat pain, throat swelling, voice changes, others Respiratory: reports: SOB at rest, shortness of breath; denies: cough, hemoptysis, orthopnea, SOB with excertion, stridor, wheezing, others Cardiovascular: denies: chest pain, dizzy spells, diaphoresis, Dyspnea on exertion, edema, irregular heart beat, left arm pain, lightheadedness, palpitations, PND, syncope, others Gastrointestinal: denies: abdomen distended, abdominal pain, blood streaked bowels, constipated, diarrhea, dysphagia, difficulty swallowing, hematemesis, melena, nausea, poor appetite, poor fluid intake, rectal bleeding, rectal pain, vomiting, others Genitourinary: denies: burning, dysuria, flank pain, frequency, hematuria, incontinence, penile discharge, penile sore, pain, testicle pain, testicle swelling, urgency, others Neurological: denies: dizziness, fainting, headache, left sided numbness, left sided weakness, numbness, paresthesia, pre-existing deficit, right sided numbness, right sided weakness, seizure, speech problems, tingling, tremors, weakness, others Musculoskeletal: denies: back pain, gout, joint pain, joint swelling, muscle pain, muscle stiffness, neck pain, others Integumetry: denies: bruises, change in color, change in hair/nails, dryness, laceration, lesions, lumps, rash, wounds, others Allergic/Immunocompromised: denies: Difficulty Healing, Frequent Infections, Hives, Itching, others Hematologic/Lymphatic: denies: anemia, blood clots, easy bleeding, easy bruising, swollen glands, others Endocrine: denies: excessive hunger, excessive sweating, excessive thirst, excessive urination, flushing, intolerance to cold, intolerance to heat, unexplained weight gain, unexplained weight loss, others Psychiatric: denies: anxiety, bipolar disorder, depression, hopeless, panic disorder, schizophrenia, sleepless, suicidal, others Physical Exam General Appearance: No Apparent Distress, Normal HEENT: Normal ENT Inspection, Pharynx Normal, TMs Normal Neck: Full Range of Motion, Non-Tender, Normal, Normal Inspection Respiratory: Accessory Muscle Use, Chest Non-Tender, Decreased Breath Sounds, Respiratory Distress Cardiovascular: No Edema, No JVD, No Murmur, No Gallop, Normal Peripheral Pulses, Regular Rate/Rhythm Breast Exam: Deferred Gastrointestinal: No Organomegaly, Non Tender, No Pulsatile Mass, Normal Bowel Sounds, Soft Genitalia: Deferred Pelvic: Deferred Rectal: Deferred Extremities: No calf tenderness, Normal capillary refill, Normal inspection, Normal range of motion, Non-tender, No pedal edema Musculoskeletal : Apperance: Normal Neurologic: Alert, health care coordinator II-XII nml as Tested, No Motor Deficits, Normal Affect, Normal Mood, No Sensory Deficits Cerebellar Function: Normal Reflexes: Normal Skin: Dry, Normal Color, Warm Lymphatic: No Adenopathy Was a procedure done? Was a procedure done?: No Differential Dx Differential Diagnosis: CHF, COPD, Pneumonia, Respiratory Distress X-Ray, Labs, Meds, VS Vital Signs Date Time Temp Pulse Resp B/P (MAP) Pulse Ox O2 Delivery O2 Flow Rate FiO2 02/03/25 00:00 82 02/02/25 23:40 90 115/71 Facial BiPAP Mask 35 02/02/25 22:00 91 25 116/75 (89) 97 02/02/25 21:38 98 Facial BiPAP Mask 35 02/02/25 21:05 98 02/02/25 21:05 26 97 Bi-Pap+ 35 35 02/02/25 20:37 97.6 105 26 114/87 95 97.6 02/02/25 20:35 Bi-Pap+ 35 35 02/02/25 20:35 97.7 102 14 197/85 (122) 94 97.7 Lab Test 02/02/25 23:00 02/02/25 21:12 02/02/25 21:08 Range/Units Troponin I High Sensitivity 37 41 </=54 ng/L White Blood Count 11.5 H 4.4-10.8 10^3/uL Red Blood Count 6.31 H 4.5-5.90 10^6/uL Hemoglobin 17.3 13.5-17.5 g/dL Hematocrit 53.3 H 41.0-53.0 % Mean Corpuscular Volume 84.5 80.0-100.0 fL Mean Corpuscular Hemoglobin 27.4 L 28.0-32.0 pg Mean Corpuscular Hemoglobin Concent 32.4 32.0-36.0 g/dL Red Cell Distribution Width 15.5 H 11.8-14.3 % Platelet Count 257 140-450 10^3/uL Mean Platelet Volume 8.0 6.9-10.8 fL Neutrophils (%) (Auto) 59.0 37.0-80.0 % Lymphocytes (%) (Auto) 28.3 10.0-50.0 % Monocytes (%) (Auto) 9.6 0.0-12.0 % Eosinophils (%) (Auto) 2.7 0.0-7.0 % Basophils (%) (Auto) 0.4 0.0-2.0 % Neutrophils # (Auto) 6.8 1.6-8.6 10 ^3/uL Lymphocytes # (Auto) 3.3 0.4-5.4 10 ^3/uL Monocytes # (Auto) 1.1 0-1.3 10 ^3/uL Eosinophils # (Auto) 0.3 0-0.8 10 ^3/uL Basophils # (Auto) 0.1 0-0.2 10 ^3/uL Nucleated Red Blood Cells 0.1 % Sodium Level 144 136-145 mmol/L Potassium Level 4.3 3.5-5.1 mmol/L Chloride Level 107 98-107 mmol/L Carbon Dioxide Level 27 20-31 mmol/L Anion Gap 10 5-15 Blood Urea Nitrogen 28 H 9-23 mg/dL Creatinine 0.88 0.700-1.30 mg/dL Glomerular Filtration Rate Calc 95 >90 mL/min BUN/Creatinine Ratio 31.8 H 10.0-20.0 Serum Glucose 91 74-106 mg/dL Calcium Level 9.1 8.7-10.4 mg/dL Magnesium Level 2.0 1.6-2.6 mg/dL Total Bilirubin 0.2 0.2-1.0 mg/dL Aspartate Amino Transferase (AST) 34 13-40 U/L Alanine Aminotransferase (ALT) 54 H 7-40 U/L Alkaline Phosphatase 100 46-116 U/L B-Type Natriuretic Peptide 122.36 0-100 pg/mL Total Protein 6.2 5.7-8.2 g/dL Albumin 4.2 3.2-4.8 g/dL Blood Gas Specimen Type Venous Blood Gas Sample Site Vbg - n/a Blood Gas Patient Temperature 37.0 Arterial Blood Date Drawn [id number] [place] Test N/a Venous Blood pH 7.418 7.320-7.430 Venous Blood pCO2 at Patient Temp 38.7 38.0-54.0 mmHg Venous Blood pO2 at Patient Temp 95.5 H 23.0-48.0 mmHg Venous Blood HCO3 24.4 22.0-29.0 mmol/L Venous Blood Base Excess 0.1 -2.0-3.0 mmol/L Blood Gas Set Respiration Rate 12.0 Blood Gas Modality Mask - bipap Blood Gas Spontaneous Rate 25 FiO2 % 35.0 Blood Gas EPAP 5 Blood Gas IPAP 12 Current Medications Medications (Trade) Dose Ordered Sig/Johana Route Start Time Stop Time Status Last Admin Albuterol (Ventolin Medneb) 5 mg ONCE ONCE NEB 02/02/25 21:00 02/02/25 21:01 DC 02/02/25 21:31 Ipratropium [place] (Atrovent Medneb) 0.5 mg ONCE ONCE NEB 02/02/25 21:00 02/02/25 21:01 DC 02/02/25 21:31 Prednisone 40 mg ONCE ONCE PO 02/02/25 21:00 02/02/25 21:01 DC 02/02/25 21:21 Magnesium Sulfate/ Dextrose 100 ml @ 100 mls/hr Q1H IV 02/02/25 21:00 02/02/25 22:59 DC 02/02/25 22:54 Time of 1ST Reevaluation: 21:01 Reevaluation 1ST: Unchanged Patient Education/Counseling: Diagnosis, Treatment Family Education/Counseling: No Family Present SEPSIS Sepsis Screen Date sepsis recognized/suspect: Feb 02, 2025 Time Sepsis recognized/suspect: 2039 Recent Procedure: No On Antibiotic Therapy: No Respiratory Rate >20: No Heart Rate >90: No Temp<36 C (96.8 F) or >38.3 C: No SBP <90 or MAP <65 mmHG: No New Acute Mental Status Change: No Is the patient on CPAP, BIPAP,: No Physician Orders Chest Portable (02/02/25 20:55) Heel Scorer (02/02/25 20:55) Electrocardigram (02/02/25 20:55) Troponin-I Hs (02/02/25 23:55) Venous Blood Gas (02/02/25 20:55) BIPAP (02/02/25 21:33) Lactic Acid W/ Reflex Order (02/03/25 00:28) Blood Culture (02/03/25 00:28) Ceftriaxone 1gm/50ml (Rocephin) (02/03/25 00:30) Azithromycin 500mg/ 250ml (Zithromax 50 (02/03/25 00:30) Vital Signs Date Time Temp Pulse Resp B/P (MAP) Pulse Ox O2 Delivery O2 Flow Rate FiO2 02/03/25 00:00 82 02/02/25 23:40 90 115/71 Facial BiPAP Mask 35 02/02/25 22:00 91 25 116/75 (89) 97 02/02/25 21:38 98 Facial BiPAP Mask 35 02/02/25 21:05 98 02/02/25 21:05 26 97 Bi-Pap+ 35 35 02/02/25 20:37 97.6 105 26 114/87 95 97.6 02/02/25 20:35 Bi-Pap+ 35 35 02/02/25 20:35 97.7 102 14 197/85 (122) 94 97.7 Laboratory Tests Test 02/02/25 21:12 White Blood Count 11.5 10^3/uL (4.4-10.8) H Medications Medications Dose Ordered Sig/Johana Route Start Time Stop Time Status Last Admin Dose Admin Albuterol 5 mg ONCE ONCE NEB 02/02/25 21:00 02/02/25 21:01 DC 02/02/25 21:31 Ipratropium [place] 0.5 mg ONCE ONCE NEB 02/02/25 21:00 02/02/25 21:01 DC 02/02/25 21:31 Magnesium Sulfate/ Dextrose 100 ml @ 100 mls/hr Q1H IV 02/02/25 21:00 02/02/25 22:59 DC 02/02/25 22:54 Prednisone 40 mg ONCE ONCE PO 02/02/25 21:00 02/02/25 21:01 DC 02/02/25 21:21 Departure 1 Departure Time of Disposition: 00:31 Impression: Primary Impression: Acute respiratory failure with hypoxia Additional Impressions: COPD exacerbation Pneumonitis Disposition: ADMITTED INPATIENT Admit to: Med Surg Condition: Guarded Discharged With: Self Comments 64-year-old male with a history of COPD now with severe shortness of breath. Patient noted to be hypoxic on his usual home oxygen. Patient was given breathing treatments and started on BiPAP and given magnesium. Chest x-ray suggest pneumonitis versus pneumonia. Patient was given Rocephin and azithromycin antibiotics. Patient will need to be admitted for supportive care and further workup. Critical Care Note Critical Care Time?: Yes (35 min-critical care time only) Critical care comment: Shortness of breath Total critical care time: Approximately 36 minutes Due to a high probability of clinically significant, life threatening deterioration, the patient required my highest level of preparedness to intervene emergently and I personally spent this critical care time directly and personally managing the patient. This critical care time included obtaining a history; examining the patient; pulse oximetry; ordering and review of studies; arranging urgent treatment with development of a management plan; evaluation of patient's response to treatment; frequent reassessment; and, discussions with other providers. This critical care time was performed to assess and manage the high probability of imminent, life-threatening deterioration that could result in multi-organ failure. It was exclusive of separately billable procedures and treating other patients. Stability Stability form required: No Heart Score Heart Score: Heart Score Response (Comments) Value History N/A 0 EKG N/A 0 Age N/A 0 Risk Factors N/A 0 Troponin N/A 0 Total 0 I personally scribed for HEDY BRIDGES MD ([email or web address]) on 02/02/25 at 21:04. Electronically submitted by Bowen Huerta ([facility]). HEDY BRIDGES MD Feb 02, 2025 21:04
[2025-02-02] MEDS: predniSONE 20 MG TAB PO ONE (21:21)
[2025-02-02] MEDS: MAGNESIUM SULFATE 1GM/100ML 100 ML IV SCH (21:21)
[2025-02-02 21:22] LABS: Hemoglobin 17.3 g/dL (13.5-17.5); Nucleated Red Blood Cells % 0.1 %
[2025-02-02 21:25] LABS: Hematocrit 53.3 % (41.0-53.0); Mean Corpuscular Hemoglobin 27.4 pg (28.0-32.0); Mean Corpuscular Volume 84.5 fL (80.0-100.0)
[2025-02-02] MEDS: IPRATROPIUM BROM 0.5 MG/2.5ML INH SOL NEB ONE (21:31)
[2025-02-02] MEDS: ALBUTEROL SULF 2.5 MG/0.5ML(0.5%) NEB SOLN NEB ONE (21:31)
--- NOTE | 2025-02-02 21:37 | DVH ---
CHEST RADIOGRAPH REASON FOR EXAM: Shortness of breath COMPARISON: XY CHEST PORTABLE on DOS: 09/04/24 TECHNIQUE: One view of the chest is provided FINDINGS: The cardiomediastinal silhouette is stable. There is diffuse interstitial prominence, sligh tly decreased compared with the prior study. The costophrenic sulci are excluded from view. There is no large pleural effusion. There is no pneumothorax. There is no lobar consolidation. IMPRESSION: Diffuse interstitial prominence, slightly decreased compared with the prior study. This may represent interstitial edema versus atypical infection.
[2025-02-02 21:38] LABS: Alkaline Phosphatase 100 U/L (46-116); Anion Gap 10 (5-15); BUN/Creatinine Ratio 31.8 (10.0-20.0); Calcium 9.1 mg/dL (8.7-10.4); Carbon Dioxide 27 mmol/L (20-31); Chloride 107 mmol/L (98-107); Glucose 91 mg/dL (74-106); Magnesium 2.0 mg/dL (1.6-2.6); Potassium 4.3 mmol/L (3.5-5.1); Sodium 144 mmol/L (136-145); Total Protein 6.2 g/dL (5.7-8.2)
[2025-02-02 21:39] LABS: Albumin 4.2 g/dL (3.2-4.8)
[2025-02-02 21:41] LABS: Alanine Aminotransferase 54 U/L (7-40); Bilirubin, Total 0.2 mg/dL (0.2-1.0); Blood Urea Nitrogen 28 mg/dL (9-23)
[2025-02-03] VITALS (9 sets, daily range): BP systolic 99–118; BP diastolic 35–74; PULSE 69–89; RESP 16–22; TEMP 98.1; O2SAT 95–99
[2025-02-03] MEDS ORDERED: ACETAMINOPHEN 325 MG TAB PO PRN (01:00)
[2025-02-03] MEDS ORDERED: ONDANSETRON HCL 4 MG/2 ML VIAL IV PRN (01:00)
--- NOTE | 2025-02-03 01:01 | DVHHPRES ---
History of Present Illness Resident Creating Document: INDRA NGUYEN RESIDENT History of Present Illness Tio Morris is a 64-year-old male patient who presents to ED with chief complaint of dyspnea in Functional Class III-IV which started two days before his admission. Patient was recently hospitalized in this facility with diagnosis of acute hypoxic respiratory failure secondary to COPD exacerbation Gram-positive pneumonia, he was discharged with Z-Sourav and prednisone, per patient he has been compliant with medication. Per patient, he was supposed to be discharged with home oxygen, even though discharge summary does not mention any requirement of home oxygen. Past medical history: Obesity, dyslipidemia, COPD with no home oxygen requirement (per patient he was supposed to get oxygen after being discharged this past admission), CHF (no echocardiogram) Surgical history: Right arthroplasty Family history: Brother and sister have history of bone cancer Social history: Lives in [place] with family (next of kin is ). Ex polysubstance abuse (ex tobacco use (50 pack-year history of smoking) quit three weeks ago. 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 Denies current tobacco, alcohol and other drug abuse. Allergies: Denies Home medication: Azithromycin and prednisone for five days since discharge. Questionable apixaban, bupropion, cyclobenzaprine, ezetimibe, ferrous sulfate, furosemide 20 mg p.o. daily, potassium. Patient seen and examined at bedside. Currently has no new complaints. Patient was on BiPAP during my examination, with FiO2 of 35%, titrating up. Patient will be admitted to telemetry. Past Medical History Per HPI Past Surgical History Per HPI Family History Per HPI Past Social History Per HPI Review of Systems Review of Systems Per HPI Allergies: Coded Allergies: NO KNOWN ALLERGIES (Unverified , 09/04/24) Exam Vital Signs Vital Signs Date Time Temp Pulse Resp B/P (MAP) Pulse Ox O2 Delivery O2 Flow Rate FiO2 02/03/25 00:00 82 02/02/25 23:40 115/71 Facial BiPAP Mask 35 02/02/25 22:00 25 97 02/02/25 20:37 97.6 97.6 Exam Patient lying in bed, in no acute distress General: Lucid, afebrile, mucosae are moist Cardiovascular: Normal S1 and S2. No murmurs, gallops or rubs Respiratory: Regular ventilation mechanics, tachypnea. Bibasilar rales, rest of lung auscultation is clear. Patient on BiPAP machine Abdomen: Soft, nontender, no organomegaly, normal bowel sounds MSK/skin: Mobilizes 4 limbs. Skin is dry and warm Neurological: Oriented in 3 spheres. No motor no sensitive deficits. Pupils are isocoric and reactive Labs/Xrays Labs Test 02/03/25 00:25 02/02/25 21:12 02/02/25 21:08 Range/Units White Blood Count 11.5 H 4.4-10.8 10^3/uL Red Blood Count 6.31 H 4.5-5.90 10^6/uL Hemoglobin 17.3 13.5-17.5 g/dL Hematocrit 53.3 H 41.0-53.0 % Mean Corpuscular Volume 84.5 80.0-100.0 fL Mean Corpuscular Hemoglobin 27.4 L 28.0-32.0 pg Mean Corpuscular Hemoglobin Concent 32.4 32.0-36.0 g/dL Red Cell Distribution Width 15.5 H 11.8-14.3 % Platelet Count 257 140-450 10^3/uL Mean Platelet Volume 8.0 6.9-10.8 fL Neutrophils (%) (Auto) 59.0 37.0-80.0 % Lymphocytes (%) (Auto) 28.3 10.0-50.0 % Monocytes (%) (Auto) 9.6 0.0-12.0 % Eosinophils (%) (Auto) 2.7 0.0-7.0 % Basophils (%) (Auto) 0.4 0.0-2.0 % Neutrophils # (Auto) 6.8 1.6-8.6 10 ^3/uL Lymphocytes # (Auto) 3.3 0.4-5.4 10 ^3/uL Monocytes # (Auto) 1.1 0-1.3 10 ^3/uL Eosinophils # (Auto) 0.3 0-0.8 10 ^3/uL Basophils # (Auto) 0.1 0-0.2 10 ^3/uL Nucleated Red Blood Cells 0.1 % Sodium Level 144 136-145 mmol/L Potassium Level 4.3 3.5-5.1 mmol/L Chloride Level 107 98-107 mmol/L Carbon Dioxide Level 27 20-31 mmol/L Anion Gap 10 5-15 Blood Urea Nitrogen 28 H 9-23 mg/dL Creatinine 0.88 0.700-1.30 mg/dL Glomerular Filtration Rate Calc 95 >90 mL/min BUN/Creatinine Ratio 31.8 H 10.0-20.0 Serum Glucose 91 74-106 mg/dL Calcium Level 9.1 8.7-10.4 mg/dL Magnesium Level 2.0 1.6-2.6 mg/dL Total Bilirubin 0.2 0.2-1.0 mg/dL Aspartate Amino Transferase (AST) 34 13-40 U/L Alanine Aminotransferase (ALT) 54 H 7-40 U/L Alkaline Phosphatase 100 46-116 U/L B-Type Natriuretic Peptide 122.36 0-100 pg/mL Total Protein 6.2 5.7-8.2 g/dL Albumin 4.2 3.2-4.8 g/dL Blood Gas Specimen Type Venous Blood Gas Sample Site Vbg - n/a Blood Gas Patient Temperature 37.0 Arterial Blood Date Drawn [id number] [place] Test N/a Venous Blood pH 7.418 7.320-7.430 Venous Blood pCO2 at Patient Temp 38.7 38.0-54.0 mmHg Venous Blood pO2 at Patient Temp 95.5 H 23.0-48.0 mmHg Venous Blood HCO3 24.4 22.0-29.0 mmol/L Venous Blood Base Excess 0.1 -2.0-3.0 mmol/L Blood Gas Set Respiration Rate 12.0 Blood Gas Modality Mask - bipap Blood Gas Spontaneous Rate 25 FiO2 % 35.0 Blood Gas EPAP 5 Blood Gas IPAP 12 SEPSIS Sepsis Screen Date sepsis recognized/suspect: Feb 02, 2025 Time Sepsis recognized/suspect: 2039 Recent Procedure: No On Antibiotic Therapy: No Respiratory Rate >20: No Heart Rate >90: No Temp<36 C (96.8 F) or >38.3 C: No SBP <90 or MAP <65 mmHG: No New Acute Mental Status Change: No Is the patient on CPAP, BIPAP,: No Physician Orders Chest Portable (02/02/25 20:55) Senior Network Security Engineer (02/02/25 20:55) Electrocardigram (02/02/25 20:55) Troponin-I Hs (02/02/25 23:55) Venous Blood Gas (02/02/25 20:55) BIPAP (02/02/25 21:33) Lactic Acid W/ Reflex Order (02/03/25 00:28) Blood Culture (02/03/25 00:28) Azithromycin 500mg/ 250ml (Zithromax 50 (02/03/25 00:30) Admit (02/03/25 00:53) Code Status (02/03/25:53) Acetaminophen Tablet (Tylenol Tablet) (02/03/25 01:00) Ondansetron Hcl (Zofran) (02/03/25 01:00) Npo (Nothing By Mouth) Diet (02/03/25 Breakfast) Echo 2d Mode Cardiac Dop (02/03/25:53) Lovenox 40mg (02/03/25 10:00) Oxygen By Nasal Cannula (02/03/25:) Stat Ekg For Chest Pain (02/03/25:53) Notify Md Of Changes From Base (02/03/25:) [employer] Dive Training Instructor For 24 Hours (02/03/25:) Emergency Dysrhythmia Protocol (02/03/25) Rhythm Strips Once Every Shift (02/03/25:53) Magnesium (02/03/25:53) Vitamin D, 25-Hydroxy (02/03/25:) Vitamin B12 (02/03/25:) Urinalysis (02/03/25:53) Thyroid Stimulating Hormone (02/03/25:53) PTPTT (02/03/25:53) Phosphorus (02/03/25:53) Lipid Panel (02/03/25:53) Hemoglobin A1c (02/03/25:53) Drug Screen (02/03/25 00:53) Complete Blood Count (02/03/25 04:00) Basic Metabolic Panel (02/03/25 04:00) Abg W/ Co-Ox (02/03/25:53) Azithromycin 500mg/ 250ml (Zithromax 50 (02/03/25 10:00) Cefepime 1 Gm (02/03/25 06:00) Cefepime 1 Gm (02/03/25 01:00) Methylprednisolone Sod Succ (Solu Medrol (02/03/25 01:00) Methylprednisolone Sod Succ (Solu Medrol (02/03/25 10:00) Vital Signs Date Time Temp Pulse Resp B/P (MAP) Pulse Ox O2 Delivery O2 Flow Rate FiO2 02/03/25 00:00 82 02/02/25 23:40 90 115/71 Facial BiPAP Mask 35 02/02/25 22:00 91 25 116/75 (89) 97 02/02/25 21:38 98 Facial BiPAP Mask 35 02/02/25 21:05 98 02/02/25 21:05 26 97 Bi-Pap+ 35 35 02/02/25 20:37 97.6 105 26 114/87 95 97.6 02/02/25 20:35 Bi-Pap+ 35 35 02/02/25 20:35 97.7 102 14 197/85 (122) 94 97.7 Laboratory Tests Test 02/02/25 21:12 White Blood Count 11.5 10^3/uL (4.4-10.8) H Medications Medications Dose Ordered Sig/Johana Route Start Time Stop Time Status Last Admin Dose Admin Albuterol 5 mg ONCE ONCE NEB 02/02/25 21:00 02/02/25 21:01 DC 02/02/25 21:31 5 MG Ipratropium [place] 0.5 mg ONCE ONCE NEB 02/02/25 21:00 02/02/25 21:01 DC 02/02/25 21:31 0.5 MG Magnesium Sulfate/ Dextrose 100 ml @ 100 mls/hr Q1H IV 02/02/25 21:00 02/02/25 22:59 DC 02/02/25 22:54 100 MLS/HR Prednisone 40 mg ONCE ONCE PO 02/02/25 21:00 02/02/25 21:01 DC 02/02/25 21:21 40 MG Assessment/Plan Assessment/Plan ASSESSMENT Acute respiratory failure secondary to COPD exacerbation COPD exacerbation Community-acquired pneumonia Gram-positive/Gram-negative Sepsis secondary to community-acquired pneumonia Acute on chronic congestive heart failure (pending LVEF) History of polysubstance abuse Obesity PLAN Patient currently on oxygen therapy with BiPAP at FiO2 of 35%. Planning on titrating down Patient currently under empiric IV antibiotic (azithromycin and cefepime) Ordered pancultures (blood, urine, sputum). Ordered swab for MRSA, COVID in influenza. Currently on IV steroids On IV furosemide 40 mg b.i.d. Currently on DVT prophylaxis. Evaluate need of therapeutic enoxaparin. Ordered echocardiogram Evaluate need of home oxygen. Per patient he needs home oxygen. Goals of care discussed with patient for over 18 minutes: Full code status Discussed plan with Dr. Mercer, patient and nurses: Patient admitted to telemetry. Planning to titrate down oxygen therapy to nasal cannula. Currently under empiric IV antibiotic, IV steroids, oxygen therapy and IV diuretics. Patient has poor prognosis. Plan discussed with: Patient, Other (Nurses) My Orders Orders - INDRA NGUYEN RESIDENT Procedure Category Date Status Time Admit ADMIT 02/03/25 Transmitted 00:53 Code Status CODE 02/03/25 Transmitted 00:53 Acetaminophen Tablet PHA 02/03/25 Transmitted (Tylenol Tablet) 01:00 Ondansetron Hcl PHA 02/03/25 Transmitted (Zofran) 01:00 Npo (Nothing By DIET 02/03/25 Transmitted Mouth) Diet Breakfast Echo 2d Mode Cardiac US 02/03/25 Transmitted DOP 00:53 Lovenox 40mg PHA 02/03/25 Transmitted 10:00 Oxygen By Nasal RT 02/03/25 Transmitted Cannula 00:53 Stat Ekg For Chest [facility] 02/03/25 Transmitted Pain 00:53 Notify Md Of Changes [facility] 02/03/25 Transmitted From Base 00:53 [employer] Dive Training Instructor For [facility] 02/03/25 Transmitted 24 Hours 00:53 Emergency Dysrhythmia [facility] 02/03/25 Transmitted Protocol 00:53 Rhythm Strips Once [facility] 02/03/25 Transmitted Every Shift 00:53 Magnesium LAB 02/03/25 Transmitted 00:53 Vitamin D, 25-Hydroxy LAB 02/03/25 Transmitted 00:53 Vitamin B12 LAB 02/03/25 Transmitted 00:53 Urinalysis LAB 02/03/25 Transmitted 00:53 Thyroid Stimulating LAB 02/03/25 Transmitted Hormone 00:53 PTPTT LAB 02/03/25 Transmitted 00:53 Phosphorus LAB 02/03/25 Transmitted 00:53 Lipid Panel LAB 02/03/25 Transmitted 00:53 Hemoglobin A1c LAB 02/03/25 Transmitted 00:53 Drug Screen LAB 02/03/25 Transmitted 00:53 Complete Blood Count LAB 02/03/25 Transmitted 04:00 Basic Metabolic Panel LAB 02/03/25 Transmitted 04:00 Abg W/ Co-Ox RT 02/03/25 Transmitted 00:53 Azithromycin 500mg/ PHA 02/03/25 Transmitted 250ml (Zithromax 50 10:00 Cefepime 1 Gm PHA 02/03/25 Transmitted 06:00 Cefepime 1 Gm PHA 02/03/25 Transmitted 01:00 Methylprednisolone PHA 02/03/25 Transmitted Sod Succ (Solu Medrol 01:00 Methylprednisolone PHA 02/03/25 Transmitted Sod Succ (Solu Medrol 10:00 Date of Service: Feb 03, 2025 Billing Provider: DEVON MERCER MD Common Visit Codes: [id number] INP/OBS CARE (HIGH) Secondary Visit Codes: [id number] CARE PLAN 30 MINUTES INDRA NGUYEN RESIDENT Feb 03, 2025 01:01
[2025-02-03 01:31] LABS: Base Excess 1.7 mmol/L (-2.0-3.0)
[2025-02-03 02:10] LABS: INR 1.02 (0.9-1.15); Partial Thromboplastin Time 25.9 SEC (24.5-34.5); Prothrombin Time 10.8 sec (9.3-11.8)
[2025-02-03] MEDS: CEFEPIME 1GM/50ML 50 ML IV ONE (02:11)
[2025-02-03] MEDS: AZITHROMYCIN 500MG/ 250ML 250 ML IV ONE (02:11)
[2025-02-03] MEDS: methylPREDNISolone SOD SUCC 40 MG/ML VL IM ONE (05:22)
[2025-02-03] MEDS: FUROSEMIDE 40 MG/4 ML VIAL IV SCH (06:15)
[2025-02-03 07:14] LABS: Chloride 102 mmol/L (98-107); Potassium 4.8 mmol/L (3.5-5.1); Sodium 143 mmol/L (136-145)
[2025-02-03 07:15] LABS: Anion Gap 12 (5-15); Calcium 8.9 mg/dL (8.7-10.4); Carbon Dioxide 29 mmol/L (20-31)
[2025-02-03 07:20] LABS: BUN/Creatinine Ratio 23.9 (10.0-20.0); Magnesium 2.3 mg/dL (1.6-2.6); Triglycerides 88.0 mg/dL (< 150)
[2025-02-03 07:21] LABS: HDL Cholesterol 46.0 mg/dL (40-59)
[2025-02-03 07:22] LABS: Cholesterol 142.0 mg/dL (< 200)
[2025-02-03 07:40] LABS: Blood Urea Nitrogen 26 mg/dL (9-23); Glucose 166 mg/dL (74-106)
[2025-02-03] MEDS: CEFEPIME 1GM/50ML 50 ML IV SCH (08:38)
[2025-02-03 09:33] LABS: COVID19 ANTIGEN SOFIA FIA NEGATIVE (NEGATIVE)
[2025-02-03] MEDS: methylPREDNISolone SOD SUCC 40 MG/ML VL IV SCH (10:10)
[2025-02-03] MEDS: ENOXAPARIN SOD 40 MG/0.4 ML SYRINGE SC SCH (10:10)
[2025-02-03] MEDS: IPRATROPIUM BROM 0.5 MG/2.5ML INH SOL NEB SCH (11:10)
[2025-02-03] MEDS: ALBUTEROL SULF 2.5 MG/0.5ML(0.5%) NEB SOLN NEB SCH (11:10)
[2025-02-03 12:29] LABS: Nucleated Red Blood Cells % 0.1 %
[2025-02-03 12:31] LABS: Hematocrit 54.9 % (41.0-53.0); Hemoglobin 18.1 g/dL (13.5-17.5); Mean Corpuscular Hemoglobin 27.8 pg (28.0-32.0); Mean Corpuscular Volume 84.2 fL (80.0-100.0)
--- NOTE | 2025-02-03 17:37 | DVHPNRES ---
Progress Note Date Seen: Feb 03, 2025 Resident Creating Document: CAMPBELL PEREA RESIDENT Medical Necessity Reason Pt with a Central, PICC or Fol: No Subjective Review of Systems Mr. Morris 64-year-old male patient who presents to ED with chief complaint of dyspnea in Functional Class III-IV which started two days before his admission. Patient was recently hospitalized in this facility with diagnosis of acute hypoxic respiratory failure secondary to COPD exacerbation Gram-positive pneumonia, he was discharged with Z-Sourav and prednisone, per patient he has been compliant with medication. Per patient, he was supposed to be discharged with home oxygen, even though discharge summary does not mention any requirement of home oxygen. Past medical history: Obesity, dyslipidemia, COPD with no home oxygen requirement (per patient he was supposed to get oxygen after being discharged this past admission), CHF (no echocardiogram) Surgical history: Right arthroplasty Family history: Brother and sister have history of bone cancer Social history: Lives in [place] with family (next of kin is ). Ex polysubstance abuse (ex tobacco use (50 pack-year history of smoking) quit three weeks ago. 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 Denies current tobacco, alcohol and other drug abuse. Allergies: Denies Home medication: Azithromycin and prednisone for five days since discharge. Questionable apixaban, bupropion, cyclobenzaprine, ezetimibe, ferrous sulfate, furosemide 20 mg p.o. daily, potassium. The patient was seen and examined at bedside. Overnight events were reviewed. The patient reports improvement in his shortness of breaths, he is on 2 L oxygen. He denies any orthopnea, paroxysmal nocturnal dyspnea. No other new complaints reported. Objective vital signs Vital Sign Date Time Temp Pulse Resp B/P (MAP) Pulse Ox O2 Delivery O2 Flow Rate FiO2 02/03/25 16:00 98.0 79 19 107/72 (84) 93 98.0 02/03/25 11:10 Nasal Cannula 2.0 02/03/25 11:10 28 Total Intake and Output 02/02/25 02/02/25 02/03/25 15:00 23:00 07:00 Intake Total 100 ml 500 ml Balance 100 ml 500 ml medications Current Medications Medications Dose Ordered Sig/Johana Route Start Time Stop Time Status Last Admin Dose Admin Acetaminophen 325 mg Q4HP PRN PO 02/03/25 01:00 Ondansetron HCl 4 mg Q4HP PRN IV 02/03/25 01:00 Enoxaparin Sodium 40 mg DAILY SC 02/03/25 10:00 02/03/25 10:10 40 MG Azithromycin 250 ml @ 125 mls/hr DAILY IV 02/04/25 10:00 Cefepime HCl 50 ml @ 12.5 mls/hr Q8H IV 02/03/25 09:00 02/03/25 17:09 12.5 MLS/HR Methylprednisolone Sodium Succinate 40 mg BID IV 02/03/25 10:00 02/03/25 10:10 40 MG Furosemide 40 mg DAILY IV 02/04/25 10:00 Albuterol 2.5 mg Q6HR NEB 02/03/25 12:00 02/03/25 11:10 2.5 MG Ipratropium [place] 0.5 mg Q6HR NEB 02/03/25 12:00 02/03/25 11:10 0.5 MG Examination Pt is lying on bed General Appearance: Alert, Oriented X3, Cooperative, Mild distress HEENT: Atraumatic, Mucous membranes moist/pink Respiratory: Breath sounds diminished, barrel-shaped chest, Normal air movement, No added sounds Cardiovascular: Regular rate, Normal S1, Normal S2, No murmurs Abdominal/ : Active bowel sounds, Soft, no distention, no tenderness Extremities: No edema, Normal pulses, No tenderness/swelling Skin: No Significant rash, except past surgical scars Neuro: Normal speech, sensorimotor deficits none Psych/Mental Status: Mental status NL, Mood NL Nurse was there as sales driver during examination laboratory and microbiology Laboratory Tests 02/03/25 12:14 02/03/25 06:46 Test 02/03/25 06:46 Range/Units Serum Glucose 166 H 74-106 mg/dL Microbiology Date/Time Source Procedure Growth Status 02/03/25 08:20 Nose MRSA Screen - Final Complete Labs and/or images reviewed: Labs reviewed by me, Image(s) reviewed by me Problem List/Assessment/Plan Problem List/Assessment/Plan Acute respiratory failure secondary to COPD exacerbation COPD exacerbation Community-acquired pneumonia Gram-positive/Gram-negative Sepsis secondary to community-acquired pneumonia Acute on chronic congestive heart failure (pending LVEF) The patient is on 2 L oxygen. Patient currently under empiric IV antibiotic (azithromycin and cefepime) Ordered pancultures (blood, urine, sputum), results pending MRSA, COVID and flu negative Consider echocardiogram tomorrow Currently on IV steroids On IV furosemide 40 mg b.i.d. Currently on DVT prophylaxis. Evaluate need of therapeutic enoxaparin. Evaluate need of home oxygen. Per patient he needs home oxygen. History of polysubstance abuse Counseled on cessation for more than 14 minutes Obesity Counseled on healthy lifestyle modifications for more than 14 minutes Goals of care discussed with patient for over 18 minutes: Full code status Plan discussed with: Patient, Other (RN) Date of Service: Feb 03, 2025 Billing Provider: STEFANIE HEARD MD Common Visit Codes: [id number] INP/OBS CARE(HIGH) CAMPBELL PEREA RESIDENT Feb 03, 2025 17:37 STEFANIE HEARD MD Feb 05, 2025 10:31
[2025-02-03 20:40] LABS: Urine Protein, UAD Negative (Negative)
[2025-02-03 20:46] LABS: Amphetamine Screen, Urine Neg (NEGATIVE); Barbiturate Scree,Urine Neg (NEGATIVE); Benzodiazephine Screen, Urine Neg (NEGATIVE); Cannabinoid Screen, Urine Neg (NEGATIVE); Cocaine Screen, Urine Neg (NEGATIVE); Opiate Scree,Urine Neg (NEGATIVE); Phencyclidine Screen, Urine Neg (NEGATIVE)
[2025-02-04] VITALS (11 sets, daily range): BP systolic 97–108; BP diastolic 60–71; PULSE 61–82; RESP 18–22; TEMP 36.9; O2SAT 92–98
[2025-02-04 06:35] LABS: Anion Gap 9 (5-15); Carbon Dioxide 30 mmol/L (20-31); Chloride 103 mmol/L (98-107); Potassium 4.7 mmol/L (3.5-5.1); Sodium 142 mmol/L (136-145)
[2025-02-04 06:36] LABS: Hematocrit 50.9 % (41.0-53.0); Hemoglobin 16.6 g/dL (13.5-17.5); Mean Corpuscular Hemoglobin 27.2 pg (28.0-32.0); Mean Corpuscular Volume 83.4 fL (80.0-100.0); Nucleated Red Blood Cells % 0.0 %
[2025-02-04 06:37] LABS: Calcium 8.8 mg/dL (8.7-10.4)
[2025-02-04 06:41] LABS: BUN/Creatinine Ratio 19.8 (10.0-20.0); Blood Urea Nitrogen 19 mg/dL (9-23)
[2025-02-04 06:43] LABS: Glucose 128 mg/dL (74-106)
[2025-02-04] MEDS: FUROSEMIDE 40 MG/4 ML VIAL IV SCH (09:38)
[2025-02-04] MEDS: AZITHROMYCIN 500MG/ 250ML 250 ML IV SCH (09:39)
[2025-02-04] MEDS ORDERED: ATOR-507 PO (10:27)
[2025-02-04 11:12] LABS: Hepatitis B Surface Antigen Negative (Negative)
[2025-02-04 11:26] LABS: Hepatitis C Antibody Negative (Negative)
[2025-02-04] MEDS ORDERED: PRED20TA2 PO (13:42)
--- NOTE | 2025-02-04 15:15 | DVHDSRES ---
Discharge Summary Date of Admission Resident Creating Document: BRIDGETT PRECIADO RESIDENT Feb 03, 2025 at 00:53 Date of Discharge: Feb 04, 2025 Labs/Diagnostic Data: Laboratory Results Test 02/04/25 05:15 02/03/25 20:22 02/03/25 20:21 02/03/25 08:15 White Blood Count 18.4 10^3/uL (4.4-10.8) Red Blood Count 6.10 10^6/uL (4.5-5.90) Hemoglobin 16.6 g/dL (13.5-17.5) Hematocrit 50.9 % (41.0-53.0) Mean Corpuscular Volume 83.4 fL (80.0-100.0) Mean Corpuscular Hemoglobin 27.2 pg (28.0-32.0) Mean Corpuscular Hemoglobin Concent 32.6 g/dL (32.0-36.0) Red Cell Distribution Width 15.4 % (11.8-14.3) Platelet Count 275 10^3/uL (140-450) Mean Platelet Volume 8.0 fL (6.9-10.8) Neutrophils (%) (Auto) 91.4 % (37.0-80.0) Lymphocytes (%) (Auto) 6.0 % (10.0-50.0) Monocytes (%) (Auto) 2.5 % (0.0-12.0) Eosinophils (%) (Auto) 0.0 % (0.0-7.0) Basophils (%) (Auto) 0.1 % (0.0-2.0) Neutrophils # (Auto) 16.8 10 ^3/uL (1.6-8.6) Lymphocytes # (Auto) 1.1 10 ^3/uL (0.4-5.4) Monocytes # (Auto) 0.5 10 ^3/uL (0-1.3) Eosinophils # (Auto) 0 10 ^3/uL (0-0.8) Basophils # (Auto) 0 10 ^3/uL (0-0.2) Nucleated Red Blood Cells 0.0 % Sodium Level 142 mmol/L (136-145) Potassium Level 4.7 mmol/L (3.5-5.1) Chloride Level 103 mmol/L (98-107) Carbon Dioxide Level 30 mmol/L (20-31) Anion Gap 9 (5-15) Blood Urea Nitrogen 19 mg/dL (9-23) Creatinine 0.96 mg/dL (0.700-1.30) Glomerular Filtration Rate Calc 87 mL/min (>90) BUN/Creatinine Ratio 19.8 (10.0-20.0) Serum Glucose 128 mg/dL (74-106) Calcium Level 8.8 mg/dL (8.7-10.4) Hepatitis B Surface Antigen Negative (Negative) Hepatitis C Antibody Negative (Negative) Urine Opiates Screen Neg (NEGATIVE) Urine Fentanyl Screen Neg (NEGATIVE) Urine Barbiturates Screen Neg (NEGATIVE) Urine Phencyclidine Screen Neg (NEGATIVE) Urine Amphetamines Screen Neg (NEGATIVE) Urine Benzodiazepines Screen Neg (NEGATIVE) Urine Cocaine Screen Neg (NEGATIVE) Urine Cannabinoids Screen Neg (NEGATIVE) Urine Color Light-yellow (Yellow) Urine Clarity Clear (Clear) Urine pH 6.0 (5.0-9.0) Urine Specific [place] 1.026 (1.001-1.035) Urine Protein Negative (Negative) Urine Ketones Trace (Negative) Urine Blood Negative /uL (Negative) Urine Nitrite Negative (Negative) Urine Bilirubin Negative (Negative) Urine Urobilinogen Normal mg/dL (Negative) Urine Leukocyte Esterase Negative /uL (Negative) Urine RBC <1 /hpf (0 - 3) Urine Microscopic WBC 1 /HPF (0-3) Urine Squamous Epithelial Cells None seen /hpf (<5) Urine Bacteria None seen /hpf (None Seen) Urine Glucose Normal mg/dL (Normal) Influenza Type A Antigen Negative (Negative) Influenza Type B Antigen Negative (Negative) SARS-CoV-2 Antigen (Rapid) Negative (NEGATIVE) Test 02/03/25 06:46 02/03/25 01:20 02/03/25 00:52 02/03/25 00:25 Hemoglobin A1c 5.9 % A1C (<5.7) Phosphorus Level 4.8 mg/dL (2.4-5.1) Magnesium Level 2.3 mg/dL (1.6-2.6) Triglycerides Level 88 mg/dL (< 150) Cholesterol Level 142 mg/dL (< 200) LDL Cholesterol 85 mg/dL (< 100) HDL Cholesterol 46 mg/dL (40-59) Vitamin B12 Level 388 pg/mL (211-911) Vitamin D 25-Hydroxy 33.3 ng/mL (30.0-100) Thyroid Stimulating Hormone (TSH) 0.71 uIU/mL (0.55-4.78) Blood Gas Specimen Type Arterial Blood Gas Sample Site Left radial Blood Gas Patient Temperature 37.0 Arterial Blood Date Drawn [id number] Arterial Blood pH 7.402 (7.350-7.450) Arterial Blood Partial Pressure CO2 44.4 mmHg (35.0-48.0) Arterial Blood Partial Pressure O2 124.6 mmHg (83.0-108.0) Arterial Blood HCO3 27.0 mmol/L (21.0-28.0) Arterial Blood Oxygen Saturation 98.4 % (94.0-98.0) Arterial Blood Base Excess 1.7 mmol/L (-2.0-3.0) Arterial Blood Oxyhemoglobin 97.2 % (94.0-98.0) Arterial Blood Carboxyhemoglobin 0.7 % (0.5-1.5) Arterial Blood Methemoglobin 0.5 % (0.0-1.5) [place] Test Modified Blood Gas Total Hemoglobin 17.80 g/dL (13.5-17.5) Blood Gas Set Respiration Rate 12.0 Blood Gas Modality Mask - bipap Blood Gas Spontaneous Rate 19 FiO2 % 35.0 Blood Gas EPAP 5 Blood Gas IPAP 12 Lactic Acid Level 1.8 mmol/L (0.4-2.0) Prothrombin Time 10.8 sec (9.3-11.8) Prothrombin Time INR 1.02 (0.9-1.15) Activated Partial Thromboplast Time 25.9 SEC (24.5-34.5) Troponin I High Sensitivity 40 ng/L (</=54) Test 02/02/25 21:12 02/02/25 21:08 Total Bilirubin 0.2 mg/dL (0.2-1.0) Aspartate Amino Transferase (AST) 34 U/L (13-40) Alanine Aminotransferase (ALT) 54 U/L (7-40) Alkaline Phosphatase 100 U/L (46-116) B-Type Natriuretic Peptide 122.36 pg/mL (0-100) Total Protein 6.2 g/dL (5.7-8.2) Albumin 4.2 g/dL (3.2-4.8) Venous Blood pH 7.418 (7.320-7.430) Venous Blood pCO2 at Patient Temp 38.7 mmHg (38.0-54.0) Venous Blood pO2 at Patient Temp 95.5 mmHg (23.0-48.0) Venous Blood HCO3 24.4 mmol/L (22.0-29.0) Venous Blood Base Excess 0.1 mmol/L (-2.0-3.0) Other Laboratory Tests 02/04/25 05:15 Brief Hx & Hospital Course: Tio Morris, a 64-year-old male with a history of COPD, CHF, obesity, and dyslipidemia, DVT, hypertension, presented to the ED with worsening dyspnea (Functional Class III-IV) two days after discharge from a recent hospitalization for acute hypoxic respiratory failure due to COPD exacerbation and Gram-positive pneumonia. He had been treated with azithromycin and prednisone and believed he was supposed to receive home oxygen, though this was not documented. His social history includes recent cessation of tobacco (50 pack-year history) and methamphetamine use. His blood culture showed no growth. Chest x-ray showed possible atypical pneumonia. During this admission, he was treated with antibiotics, steroids, diuretics, and nebulized bronchodilators, showed symptomatic improvement, and is now being discharged. Condition at Discharge: Fair Final Diagnosis/Problems List Acute respiratory failure secondary to COPD exacerbation COPD exacerbation Acute on chronic congestive heart failure Community acquired pneumonia Gram positive/Gram negative Sepsis secondary to community acquired pneumonia History of polysubstance abuse Grade 1 obesity Discharge Disposition: Home Discharge Instruct/Medications Diet: Cardiac 2g Na,low cholest Activity: No Restrictions, As Tolerated Follow Up/Referral: Follow up with PCP in 7 days after discharge. Scheduled Apixaban Base (Eliquis), 5 MG PO BID, (Reported) Atorvastatin Calcium (Lipitor), 1 TAB PO QPM, (Reported) Azithromycin (Zithromax Tablet), 250 MG PO DAILY Bupropion Hcl (Bupropion Hcl Sr), 150 MG PO BID, (Reported) Cyclobenzaprine Hcl (Cyclobenzaprine Hcl), 5 MG PO DAILY, (Reported) Ezetimibe (Ezetimibe), 10 MG PO DAILY, (Reported) Ferrous Sulfate (Ferrous Sulfate), 325 MG PO DAILY, (Reported) Furosemide (Furosemide), 1 TAB PO DAILY, (Reported) Methylprednisolone (Methylprednisolone Dose P), 4 MG PO DAILY Potassium Chloride (Potassium Chloride Cr), 10 MEQ PO DAILY, (Reported) Prednisone (Prednisone), 40 MG PO DAILY Discharge Statement: "Patient was advised to return to the ER or call 911 if any headaches, dizziness, shortness of breath, chest pain, abdominal pain, bleeding, fevers, or worsening of medical condition. Patient was counseled about treatment plan, medications, possible side effects, patientverbalized understanding. All questions were answered to the best of my ability. This discharge took greater then 30 minutes in planning, reviewing documentation, counseling the patient, and discussing with other team members." ASSESSMENT ASSESSMENT Assessment COPD exacerbation BRIDGETT PRECIADO RESIDENT Feb 04, 2025 14:54
--- NOTE | 2025-02-05 00:22 | ECG ---
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
== END 2025-02-04 14:00 | disposition home or self-care (01) | DRG 871 ==
LOC: ER 20:35 → OVERFLOW 02-03 00:53 → TELE-WESTW 02-03 21:33
PROVIDERS: ADMIT Internal Medicine Geriatric Medicine; ATTEND Internal Medicine Geriatric Medicine
PROC: 5A09357 Assistance with Respiratory Ventilation, Less than 24 Consecutive Hours, Continuous Positive Airway Pressure (ICD-10-PCS; principal; 2025-02-02)
PROC: 5A09357 Assistance with Respiratory Ventilation, Less than 24 Consecutive Hours, Continuous Positive Airway Pressure (ICD-10-PCS; 2025-02-03)
DX: A41.50 Gram-negative sepsis, unspecified (principal); J15.69 Pneumonia due to other Gram-negative bacteria; J96.01 Acute respiratory failure with hypoxia; J15.9 Unspecified bacterial pneumonia; J44.1 Chronic obstructive pulmonary disease with (acute) exacerbation; J44.0 Chronic obstructive pulmonary disease with (acute) lower respiratory infection; E66.9 Obesity, unspecified; I50.9 Heart failure, unspecified; F17.210 Nicotine dependence, cigarettes, uncomplicated; Z20.822 Contact with and (suspected) exposure to COVID-19; J98.4 Other disorders of lung; Z68.33 Body mass index [BMI] 33.0-33.9, adult; Z86.718 Personal history of other venous thrombosis and embolism; Z79.01 Long term (current) use of anticoagulants; I11.0 Hypertensive heart disease with heart failure
CPT/HCPCS: 36415; 36600; 71045; 80048; 80053; 80061; 80307; 81001; 82306; 82607; 82805; 83036; 83605; 83735; 83880; 84100; 84443; 84484; 85025; 85610; 85730; 86803; 87040; 87070; 87081; 87086; 87205; 87340; 87426; 87804; 93005; 94640; 94660; 96365; 96366; 99291; G0378

== ENCOUNTER 2025-02-21 22:26 | Inpatient (IN) | payer MEDICAID ==
[~2025-02-21] VITALS: Ht 177.8 cm; Wt 97.9 kg
[~2025-02-21 22:26] MED LIST changes: +ATOR-507 PO; +PRED20TA2 PO
--- NOTE | 2025-02-21 22:50 | ED.PDOC ---
SOB-HPI HPI Comments DERRICK SHORTNESS OF BREATH HPI: 64-year-old male who came to ER for shortness of breath. She does have a history of PE, CHF and COPD. On home oxygen at 2 L/min. For the past few hours patient has been having shortness of breath despite taking these medications. Patient started taking breathing treatments every 2 hours but offered no relief. Patient was saturating 95% on 2 L/min. Patient early on Eliquis Patient was just discharged here last February 04, diagnosed with Acute respiratory failure secondary to COPD exacerbation COPD exacerbation Acute on chronic congestive heart failure Community acquired pneumonia Gram positive/Gram negative Sepsis secondary to community acquired pneumonia History of polysubstance abuse Grade 1 obesity Past Medical History: COPD, CHF, DVT, Pe, hypertension, dyslipidemia Surgical History: Denies Family History: Denies Personal And Social History: History of polysubstance abuse HPI: Poor Historian. States compliance with all medications including his Lasix and Eliquis. Patient has tried to use inhalers multiple times today without significant improvement. Home O2 use 2 L nasal cannula at baseline. Denies any recent use of drugs. REVIEW OF SYSTEMS: CONSTITUTIONAL: Denies acute: fever, diaphoresis, chills, generalized weakness. HEAD: Denies acute: headache, photophobia Eyes: Denies acute: Double vision, vision loss, eye pain, eye discharge. EARS: Denies acute: tinnitus, hearing loss, ear discharge, ear pain, THROAT: Denies acute: sore throat, swelling, difficulty swallowing , pain with swallowing, change in voice. NECK: Denies acute: neck pain, neck swelling, stiff neck. HEART: Denies acute : chest pain, palpitations, LUNGS: Denies acute: , wheezing, cough, hemoptysis ABDOMEN: Denies acute: abdominal pain, Nausea, Vomiting, diarrhea, melena , hematemesis, hematochezia SKIN: Denies acute: rash, redness, lesions, itchiness. EXTREMITIES: Denies acute: calf pain, numbness, tingling, weakness, denies pain in extremity. Denies acute: Low back pain. Neuro: Denies acute: focal neurological deficit, motor or sensory focal neurological deficit, tremors, seizure like activity, confusion, dizziness, change in mental status, loss of bowel or bladder function, cauda equina like symptoms. : Denies acute: dysuria, hematuria, flank pain, increase in urinary frequency. PSYCH: Denies acute: hallucination, suicidal ideation, homicidal ideation. PHYSICAL EXAM: General: -----moderate---acute distress, awake and alert. Head: normocephalic, atraumatic. No raccoon's eyes, no spear sign. Neck: supple, trachea is midline, no swelling. Throat: Normal phonation. Eyes:, no erythema, no purulent discharge, no proptosis, no icterus. Heart: regular rate, regular rhythm, no significant murmur appreciated. Lungs: Ypdz-aw-jvdooery respiratory distress, Able to speak in full sentences. Bilateral wheezing worse on the right side, no rhonchi, no crackles. No stridors Abdomen: non tender to palpation, non distended, soft, no guarding, no rebound, + bowel sounds. Obese Neuro: Awake, Alert, oriented to name, self, situation, follows commands GCS=15. Speech is normal. Skin: no petechia, no purpura, no cyanosis, non-pale, not jaundice. Lower extremities: --trace- Pitting edema no deformity, no focal swelling, no calf TTP. Makes eye contact. moves all four extremities. Face: no apparent facial droop. ED COURSE: DISCLAIMER: This medical document was created using an electronic medical record system with voice recognition software and computerized dictation system. Although this document has been carefully reviewed, there might still be some phonetic and typographical errors. Occasional wrong-word or "sound-alike" substitutions may have occurred due to the inherent limitations of voice recognition software. These areas are purely typographical due to imperfections of the software programs and do not reflect any compromise in the patient's medical care. Please read the chart carefully and recognize, using context, where these substitutions have occurred. Chief Complaint: Shortness of Breath Time Seen by MD: 22:34 Primary Care Provider: ADAN Reviewed notes: Allergies Information Source: Patient Mode of Arrival: Wheelchair Past Medical History PAST MEDICAL HISTORY: CHF, COPD Surgical History: Denies all surgeries Family History Family History: Reviewed,noncontributory to illness Social History Smoker: Cigarettes Alcohol: Denies ETOH Use Drugs: Denies Drug Use Lives In: Home Was a procedure done? Was a procedure done?: No Differential Dx Differential Diagnosis: CHF, COPD, Respiratory Distress, Other (DDx include ACS, unstable angina, anxiety, PE, pneumothroax, neoplasm, cardiac ischemia, COPD, asthma, CHF, pleural effusion, tobacco abuse, pneumonia, hypoxia, hypercapnia, anemia., infection/sepsis., pulmonary edema. Asthma, Cardiac tamponade, infection.) X-Ray, Labs, Meds, VS Vital Signs Date Time Temp Pulse Resp B/P (MAP) Pulse Ox O2 Delivery O2 Flow Rate FiO2 02/21/25 22:57 24 92 Room Air* 0 21 02/21/25 22:27 97.5 108 24 118/94 95 97.5 Lab Test 02/21/25 23:45 02/21/25 22:45 Range/Units Troponin I High Sensitivity 48 53 </=54 ng/L White Blood Count 9.2 4.4-10.8 10^3/uL Red Blood Count 5.83 4.5-5.90 10^6/uL Hemoglobin 16.3 13.5-17.5 g/dL Hematocrit 49.0 41.0-53.0 % Mean Corpuscular Volume 84.0 80.0-100.0 fL Mean Corpuscular Hemoglobin 28.0 28.0-32.0 pg Mean Corpuscular Hemoglobin Concent 33.3 32.0-36.0 g/dL Red Cell Distribution Width 17.0 H 11.8-14.3 % Platelet Count 140 140-450 10^3/uL Mean Platelet Volume 8.0 6.9-10.8 fL Neutrophils (%) (Auto) 63.8 37.0-80.0 % Lymphocytes (%) (Auto) 19.3 10.0-50.0 % Monocytes (%) (Auto) 9.0 0.0-12.0 % Eosinophils (%) (Auto) 6.9 0.0-7.0 % Basophils (%) (Auto) 1.0 0.0-2.0 % Neutrophils # (Auto) 5.9 1.6-8.6 10 ^3/uL Lymphocytes # (Auto) 1.8 0.4-5.4 10 ^3/uL Monocytes # (Auto) 0.8 0-1.3 10 ^3/uL Eosinophils # (Auto) 0.6 0-0.8 10 ^3/uL Basophils # (Auto) 0.1 0-0.2 10 ^3/uL Nucleated Red Blood Cells 0.1 % D-Dimer, Quantitative 0.24 0.0-0.49 mg/L FEU Sodium Level 144 136-145 mmol/L Potassium Level 4.1 3.5-5.1 mmol/L Chloride Level 107 98-107 mmol/L Carbon Dioxide Level 30 20-31 mmol/L Anion Gap 7 5-15 Blood Urea Nitrogen 17 9-23 mg/dL Creatinine 1.02 0.700-1.30 mg/dL Glomerular Filtration Rate Calc 81 >90 mL/min BUN/Creatinine Ratio 16.7 10.0-20.0 Serum Glucose 101 74-106 mg/dL Calcium Level 9.4 8.7-10.4 mg/dL Magnesium Level 1.8 1.6-2.6 mg/dL Total Bilirubin 0.8 0.2-1.0 mg/dL Aspartate Amino Transferase (AST) 25 13-40 U/L Alanine Aminotransferase (ALT) 27 7-40 U/L Alkaline Phosphatase 110 46-116 U/L B-Type Natriuretic Peptide 67.47 0-100 pg/mL Total Protein 6.6 5.7-8.2 g/dL Albumin 4.3 3.2-4.8 g/dL Current Medications Medications (Trade) Dose Ordered Sig/Johana Route Start Time Stop Time Status Last Admin Albuterol (Ventolin Medneb) 2.5 mg ONCE ONCE NEB 02/21/25 22:45 02/21/25 22:46 DC 02/21/25 22:54 Ipratropium [place] (Atrovent Medneb) 1 mg ONCE ONCE NEB 02/21/25 22:45 02/21/25 22:46 DC 02/21/25 22:[address] [address] Ph: [phone] DIAGNOSTIC IMAGING Diagnostic Imaging Report : [id number] Signed PATIENT: KRISTY MEZA ACCT: [id number] UNIT: [id number] : 1960 LOC: ER ROOM / BED: / AGE / SEX: 64 / M ADM STATUS: REG ER SERVICE [id number] ORDERING PHYSICIAN: MERON CHEEK DO PROCEDURE(s): CXRP - CHEST PORTABLE REASON: sob ORDER NUMBER(s): [id number], ACCESSION NUMBER(s): [id number] CHEST RADIOGRAPH Indication: sob Technique: Single frontal view of the chest was obtained COMPARISON: XY CHEST PORTABLE on DOS: 02/02/25, XY CHEST PORTABLE on DOS: 01/27/25, XY CHEST XRAY 1 VIEW on DOS: 11/22/24, XY CHEST PORTABLE on DOS: 10/09/24, XY CHEST PORTABLE on DOS: 09/04/24 FINDINGS: Lines and Tubes: None Lungs: Moderate diffuse increased prominence of the pulmonary vasculature. No evidence of focal consolidation. Pleura: No effusion. No pneumothorax. Cardiomediastinal contours: Unremarkable Bones: Unremarkable IMPRESSION: 1. Moderate pulmonary vascular congestion. ATED BY: MELECIO VALLES MD DICTATED DATE/TIME: 02/22/253 SIGNED BY: MELECIO VALLES MD SIGNED DATE/TIME: 02/22/253 CC: Time of 1ST Reevaluation: 22:57 Reevaluation 1ST: Unchanged Patient Education/Counseling: Diagnosis, Treatment Family Education/Counseling: Diagnosis, Treatment Comments MDM: patient presented with the above HPI.---dyspnea---workup was initiated. patient was found with the above mentioned diagnosis. the following medications were ordered: please refer to order lists of meds and tests obtained by myself Dr. Cheek. Patient ED course and VS have been stabilized. Patient has been reassessed in the ED and remained in a stable condition. Pertinent incidental findings were discussed with the patient and/or family. Patient/family voices understanding and is agreeable with plan. Patient has been observed in the ED adequate length of time to insure improvement/stability. Escalation of care considered: Consideration of escalation to observation or admission Patient was ADMITTED to the medicine team for further evaluation and treatment of their presentation. All the reports of any imaging studies that were ordered by myself were reviewed by myself. SEPSIS Sepsis Screen Date sepsis recognized/suspect: Feb 21, 2025 Time Sepsis recognized/suspect: 2228 Recent Procedure: No On Antibiotic Therapy: No Respiratory Rate >20: Yes Heart Rate >90: Yes Temp<36 C (96.8 F) or >38.3 C: No SBP <90 or MAP <65 mmHG: No New Acute Mental Status Change: No Is the patient on CPAP, BIPAP,: No Physician Orders System Consultant (02/21/25 ) Chest Portable (02/21/25 22:34) Electrocardigram (02/21/25 22:34) Troponin-I Hs (02/22/25 01:34) Drug Screen (02/21/25 22:34) Vital Signs Date Time Temp Pulse Resp B/P (MAP) Pulse Ox O2 Delivery O2 Flow Rate FiO2 02/21/25 22:57 24 92 Room Air* 0 21 02/21/25 22:27 97.5 108 24 118/94 95 97.5 Laboratory Tests Test 02/21/25 22:45 White Blood Count 9.2 10^3/uL (4.4-10.8) Medications Medications Dose Ordered Sig/Joahna Route Start Time Stop Time Status Last Admin Dose Admin Albuterol 2.5 mg ONCE ONCE NEB 02/21/25 22:45 02/21/25 22:46 DC 02/21/25 22:54 Ipratropium [place] 1 mg ONCE ONCE NEB 02/21/25 22:45 02/21/25 22:46 DC 02/21/25 22:54 Departure 1 Departure Time of Disposition: 22:51 Impression: Primary Impression: Acute respiratory distress Additional Impressions: COPD exacerbation Pulmonary vascular congestion Disposition: ADMITTED INPATIENT Admit to: [facility] Condition: Guarded Discharged With: Self Critical Care Note Critical Care Time?: Yes (45 min-critical care time only) Heart Score Heart Score: Heart Score Response (Comments) Value History Moderate Suspicious 1 EKG Normal 0 Age >65 2 Risk Factors >3 or Hx ASHD 2 Troponin Normal limit 0 Total 5 I personally scribed for MERON CHEEK DO ([email or web address]) on 02/21/25 at 22:50. Electronically submitted by Bowen Huerta ([facility]). I personally scribed for MERON CHEEK DO ([email or web address]) on 02/21/25 at 22:58. Electronically submitted by Bowen Huerta ([email or web address]). I personally scribed for MERON CHEEK DO ([email or web address]) on 02/21/25 at 22:59. Electronically submitted by Bowen Huerta ([email or web address]). I personally scribed for MERON CHEEK DO ([email or web address]) on 02/22/25 at 00:23. Electronically submitted by Bowen Huerta ([facility]). MERON CHEEK DO Feb 21, 2025 22:50
[2025-02-21] MEDS: IPRATROPIUM BROM 0.5 MG/2.5ML INH SOL NEB ONE (22:54)
[2025-02-21] MEDS: ALBUTEROL SULF 2.5 MG/0.5ML(0.5%) NEB SOLN NEB ONE (22:54)
[2025-02-21 22:56] LABS: Hematocrit 49.0 % (41.0-53.0); Hemoglobin 16.3 g/dL (13.5-17.5); Mean Corpuscular Hemoglobin 28.0 pg (28.0-32.0); Mean Corpuscular Volume 84.0 fL (80.0-100.0); Nucleated Red Blood Cells % 0.1 %
[2025-02-21 23:12] LABS: Alanine Aminotransferase 27 U/L (7-40); Albumin 4.3 g/dL (3.2-4.8); Alkaline Phosphatase 110 U/L (46-116); Anion Gap 7 (5-15); BUN/Creatinine Ratio 16.7 (10.0-20.0); Bilirubin, Total 0.8 mg/dL (0.2-1.0); Blood Urea Nitrogen 17 mg/dL (9-23); Calcium 9.4 mg/dL (8.7-10.4); Carbon Dioxide 30 mmol/L (20-31); Glucose 101 mg/dL (74-106); Magnesium 1.8 mg/dL (1.6-2.6); Potassium 4.1 mmol/L (3.5-5.1); Sodium 144 mmol/L (136-145); Total Protein 6.6 g/dL (5.7-8.2)
[2025-02-21 23:16] LABS: Chloride 107 mmol/L (98-107)
[2025-02-22] VITALS (10 sets, daily range): BP systolic 118; BP diastolic 94; PULSE 89–107; RESP 18–24; TEMP 97.5; O2SAT 90–94
--- NOTE | 2025-02-22 00:06 | DVH ---
CHEST RADIOGRAPH Indication: sob Technique: Single frontal view of the chest was obtained COMPARISON: XY CHEST PORTABLE on DOS: 02/02/25, XY CHEST PORTABLE on DOS: 01/27/25, XY CHEST XRAY 1 VIEW on DOS: 11/22/24, XY CHEST PORTABLE on DOS: 10/09/24, XY CHEST PORTABLE on DOS: 09/04/24 FINDINGS: Lines and Tubes: None Lungs: Moderate diffuse increased prominence of the pulmonary vasculature. No evidence of focal consolidation. Pleura: No effusion. No pneumothorax. Cardiomediastinal contours: Unremarkable Bones: Unremarkable IMPRESSION: 1. Moderate pulmonary vascular congestion.
[2025-02-22] MEDS ORDERED: hydrALAZINE HCL 20 MG/ML VL IV PRN (01:00)
[2025-02-22] MEDS ORDERED: HYDROcodone-ACET 5/325MG TAB PO PRN (01:00)
[2025-02-22] MEDS ORDERED: ACETAMINOPHEN 325 MG TAB PO PRN (01:00)
[2025-02-22] MEDS ORDERED: DOCUSATE SOD 100 MG CAP PO PRN (01:00)
[2025-02-22] MEDS ORDERED: ONDANSETRON HCL 4 MG/2 ML VIAL IV PRN (01:00)
--- NOTE | 2025-02-22 01:19 | DVHHP2 ---
History of Present Illness Reason for Visit: Acute respiratory distress History of Present Illness The patient is a 64-year-old male with past medical history of hyperlipidemia, hypertension, PE, COPD, CHF, and DVT presented to [facility] ED with complaint of shortness of breaths. Patient reports he has been experiencing difficulty breathing despite being on oxygen 2 L/min at home, unrelieved with breathing treatment medication, increased work of breathing, getting worse that prompted this visit. Patient was seen and evaluated in the ED, laboratory data shows WBC 9.2, platelets 140, sodium 144, potassium 4.1, BUN 17, creatinine 1.02, GFR 81, glucose 101, calcium 9.4, D-dimer 0.24, troponin 48, BNP 67.47, blood pressure 118/94, heart rate 108, temperature 97.6 F, O2 saturation 92% on oxygen. Chest x-ray revealing moderate pulmonary vascular congestion. Please see medication orders section in the computer. On my assessment, patient denied chest pain, no headache, dizziness, currently on oxygen, no abdominal pain, nausea, vomiting, fever, no chills. Patient was admitted for further evaluation and medical management. Past Medical History CHF, COPD, DVT, PE, Hypertension, Dyslipidemia Past Surgical History Denies all surgeries Family History Reviewed, noncontributory to the management of this case. Past Social History The patient lives at home, smokes cigarettes, denies alcohol or illicit drugs abuse. Review of Systems Constitutional: Yes: Weakness; No: Fever, Chills, Sweats, Malaise, Other Eyes: No: Pain, Vision change, Conjunctivae inflammation, Eyelid inflammation, Other, Redness ENT: No: Ear pain, Ear discharge, Nose pain, Nose discharge, Nose congestion, Mouth pain, Mouth swelling, Throat pain, Throat swelling, Other Respiratory: Shortness of breath, Other (SOB at rest); No: Cough, Dry, SOB with excertion, Wheezing, Hemoptysis, Pleuritic Pain, Sputum, Wheezing Cardiovascular: No: Chest Pain, Palpitations, Orthopnea, Paroxysmal Noc. Dyspnea, Edema, Lt Headedness, Other Gastrointestinal: No: Nausea, Vomiting, Abdominal Pain, Diarrhea, Constipation, Melena, Hematochezia, Other Genitourinary: No Dysuria, No Frequency, No Incontinence, No Hematuria, No Retention, No Other Musculoskeletal: No: other, neck pain, shoulder pain, arm pain, back pain, hand pain, leg pain, foot pain Skin: No: Rash, Lesions, Jaundice, Bruising, Other Neurological: No: Weakness, Numbness, Incoordination, Change in speech, Confusion, Seizures, Other Allergies: Coded Allergies: NO KNOWN ALLERGIES (Unverified , 09/04/24) Medications Current Medications Medications Dose Ordered Sig/Johana Route Start Time Stop Time Status Last Admin Dose Admin Methylprednisolone Sodium Succinate 40 mg Q8HR IV 02/22/25 06:00 Famotidine 20 mg Q12HR IV 02/22/25 10:00 Albuterol 2.5 mg Q4HPRN PRN NEB 02/22/25 01:00 Ipratropium [place] 0.5 mg Q4HPRN PRN NEB 02/22/25 01:00 Atorvastatin Calcium 20 mg HS PO 02/22/25 22:00 Hydralazine HCl 10 mg Q6HP PRN IV 02/22/25 01:00 Apixaban 5 mg BID PO 02/22/25 10:00 Sodium Chloride 10 ml Q8HR IV 02/22/25 06:00 Acetaminophen/ Hydrocodone Bitart 1 tab Q4HP PRN PO 02/22/25 01:00 Ondansetron HCl 4 mg Q4HP PRN IV 02/22/25 01:00 Docusate Sodium 100 mg BIDPRN PRN PO 02/22/25 01:00 Acetaminophen 650 mg Q6HP PRN PO 02/22/25 01:00 Furosemide 20 mg DAILY IV 02/22/25 10:00 Exam Vital Signs Vital Signs Date Time Temp Pulse Resp B/P (MAP) Pulse Ox O2 Delivery O2 Flow Rate FiO2 02/22/25 01:07 97.5 101 22 118/94 93 97.5 02/21/25 22:57 Room Air* 0 21 General Appearance: Alert, Oriented X3, Cooperative, No acute distress HEENT: Atraumatic, PERRLA, EOMI, Mucous membr. moist/pink Respiratory: Normal air movement, Other (Diminished breath sounds) Cardiovascular: Regular rate, Normal S1, Normal S2, No murmurs Abdominal: Normal bowel sounds, Soft, No tenderness, No hepatospenomegaly, No masses Extremities: No clubbing, No cyanosis, No edema, Normal pulses, No tenderness/swelling Skin: No rashes, No significant lesion Neuro: Normal speech, Normal tone, Sensation intact, Cranial nerves 3-12 NL, Reflexes 2+, Other (Generalized weakness) Psych/Mental Status: Mental status NL, Mood NL Labs/Xrays Labs Test 02/21/25 23:45 02/21/25 22:45 Range/Units Troponin I High Sensitivity 48 </=54 ng/L White Blood Count 9.2 4.4-10.8 10^3/uL Red Blood Count 5.83 4.5-5.90 10^6/uL Hemoglobin 16.3 13.5-17.5 g/dL Hematocrit 49.0 41.0-53.0 % Mean Corpuscular Volume 84.0 80.0-100.0 fL Mean Corpuscular Hemoglobin 28.0 28.0-32.0 pg Mean Corpuscular Hemoglobin Concent 33.3 32.0-36.0 g/dL Red Cell Distribution Width 17.0 H 11.8-14.3 % Platelet Count 140 140-450 10^3/uL Mean Platelet Volume 8.0 6.9-10.8 fL Neutrophils (%) (Auto) 63.8 37.0-80.0 % Lymphocytes (%) (Auto) 19.3 10.0-50.0 % Monocytes (%) (Auto) 9.0 0.0-12.0 % Eosinophils (%) (Auto) 6.9 0.0-7.0 % Basophils (%) (Auto) 1.0 0.0-2.0 % Neutrophils # (Auto) 5.9 1.6-8.6 10 ^3/uL Lymphocytes # (Auto) 1.8 0.4-5.4 10 ^3/uL Monocytes # (Auto) 0.8 0-1.3 10 ^3/uL Eosinophils # (Auto) 0.6 0-0.8 10 ^3/uL Basophils # (Auto) 0.1 0-0.2 10 ^3/uL Nucleated Red Blood Cells 0.1 % D-Dimer, Quantitative 0.24 0.0-0.49 mg/L FEU Sodium Level 144 136-145 mmol/L Potassium Level 4.1 3.5-5.1 mmol/L Chloride Level 107 98-107 mmol/L Carbon Dioxide Level 30 20-31 mmol/L Anion Gap 7 5-15 Blood Urea Nitrogen 17 9-23 mg/dL Creatinine 1.02 0.700-1.30 mg/dL Glomerular Filtration Rate Calc 81 >90 mL/min BUN/Creatinine Ratio 16.7 10.0-20.0 Serum Glucose 101 74-106 mg/dL Calcium Level 9.4 8.7-10.4 mg/dL Magnesium Level 1.8 1.6-2.6 mg/dL Total Bilirubin 0.8 0.2-1.0 mg/dL Aspartate Amino Transferase (AST) 25 13-40 U/L Alanine Aminotransferase (ALT) 27 7-40 U/L Alkaline Phosphatase 110 46-116 U/L B-Type Natriuretic Peptide 67.47 0-100 pg/mL Total Protein 6.6 5.7-8.2 g/dL Albumin 4.3 3.2-4.8 g/dL PATIENT: KRISTY MEZA KAT: [id number] UNIT: [id number] : 1960 LOC: ER ROOM / BED: / AGE / SEX: 64 / M ADM STATUS: REG ER SERVICE 33 ORDERING PHYSICIAN: MERON CHEEK DO PROCEDURE(s): CXRP - CHEST PORTABLE REASON: sob ORDER NUMBER(s): [id number], ACCESSION NUMBER(s): [id number] CHEST RADIOGRAPH Indication: sob Technique: Single frontal view of the chest was obtained COMPARISON: XY CHEST PORTABLE on DOS: 02/02/25, XY CHEST PORTABLE on DOS: 01/27/25, XY CHEST XRAY 1 VIEW on DOS: 11/22/24, XY CHEST PORTABLE on DOS: 10/09/24, XY CHEST PORTABLE on DOS: 09/04/24 FINDINGS: Lines and Tubes: None Lungs: Moderate diffuse increased prominence of the pulmonary vasculature. No evidence of focal consolidation. Pleura: No effusion. No pneumothorax. Cardiomediastinal contours: Unremarkable Bones: Unremarkable IMPRESSION: 1. Moderate pulmonary vascular congestion. SEPSIS Sepsis Screen Date sepsis recognized/suspect: Feb 21, 2025 Time Sepsis recognized/suspect: 2228 Recent Procedure: No On Antibiotic Therapy: No Respiratory Rate >20: Yes Heart Rate >90: Yes Temp<36 C (96.8 F) or >38.3 C: No SBP <90 or MAP <65 mmHG: No New Acute Mental Status Change: No Is the patient on CPAP, BIPAP,: No Physician Orders Clinical Staff Anesthesiologist (02/21/25 ) Chest Portable (02/21/25 22:34) Electrocardigram (02/21/25 22:34) Troponin-I Hs (02/22/25 01:34) Drug Screen (02/21/25 22:34) Complete Blood Count (02/22/25 04:00) Comprehensive Metabolic Panel (02/22/25 04:00) Methylprednisolone Sod Succ (Solu Medrol (02/22/25 06:00) Famotidine Injection (Pepcid Injection) (02/22/25 10:00) Albuterol Medneb (Ventolin Medneb) (02/22/25 01:00) Ipratropium Medneb (Atrovent Medneb) (02/22/25 01:00) Atorvastatin (Lipitor) (02/22/25 22:00) Hydralazine Injection (Apresoline Inject (02/22/25 01:00) Apixaban (Eliquis) (02/22/25 10:00) Allergies (02/22/25 00:56) Code Status (02/22/25 00:56) Sodium Chloride Lock (Saline Lock Ns) (02/22/25 06:00) Oxygen Per Hour (02/22/25 00:56) Hydrocodone-Acet 5/325mg Tab ([place] 5/32 (02/22/25 01:00) Ondansetron Hcl (Zofran) (02/22/25 01:00) Docusate Sodium Capsule (Colace Capsule) (02/22/25 01:00) Complete Blood Count (02/23/25 04:00) Comprehensive Metabolic Panel (02/23/25 04:00) Cardiac Diet-2gna,Lofat,Lochol (02/22/25 Breakfast) Condition: Serious (02/22/25 00:56) Acetaminophen Tablet (Tylenol Tablet) (02/22/25 01:00) Bedrest With Bathroom Privileg (02/22/25 00:56) Maintain Bed Rest (02/22/25 00:56) Sequential Compression Device (02/22/25 ) Furosemide Injection (Lasix Injection) (02/22/25 10:00) Admit (02/22/25 01:18) Nitroglycerin Sublingual (Ntrostat Subli (02/22/25 01:30) Morphine Sulfate Injection (02/22/25 01:30) Stat Ekg For Chest Pain (02/22/25 01:18) Notify Of Changes From Base (02/22/25 01:18) Business Objects Architect For 24 Hours (02/22/25 01:18) Emergency Dysrhythmia Protocol (02/22/25 01:18) Rhythm Strips Once Every Shift (02/22/25 01:18) Oxygen By Nasal Cannula (02/22/25 01:18) Vital Signs Date Time Temp Pulse Resp B/P (MAP) Pulse Ox O2 Delivery O2 Flow Rate FiO2 02/22/25 01:07 97.5 101 22 118/94 93 97.5 02/21/25 22:57 24 92 Room Air* 0 21 02/21/25 22:27 97.5 108 24 118/94 95 97.5 Laboratory Tests Test 02/21/25 22:45 White Blood Count 9.2 10^3/uL (4.4-10.8) Medications Medications Dose Ordered Sig/Johana Route Start Time Stop Time Status Last Admin Dose Admin Albuterol 2.5 mg ONCE ONCE NEB 02/21/25 22:45 02/21/25 22:46 DC 02/21/25 22:54 2.5 MG Ipratropium [place] 1 mg ONCE ONCE NEB 02/21/25 22:45 02/21/25 22:46 DC 02/21/25 22:54 1 MG Assessment/Plan Assessment/Plan Acute respiratory distress COPD with acute exacerbation Pulmonary vascular congestion Generalized weakness Plan 1. Admit to telemetry unit 2. Breathing treatment 3. Pain control management 4. Management of fluids and electrolytes 5. Consultation for hospitalist 6. Diagnostic tests chest x-ray 7. DVT prophylaxis-on Eliquis 8. Repeat labs CBC, CMP in a.m. 9. Continue with current medical management 10. Treatment plan discussed with patient and RN. Patient verbalized understanding. Plan discussed with: Patient, Other (RN) My Orders Orders - HOUSTON HANNA DNP Procedure Category Date Status Time Complete Blood Count LAB 02/22/25 Logged 04:00 Comprehensive LAB 02/22/25 Logged Metabolic Panel 04:00 Methylprednisolone PHA 02/22/25 In Process Sod Succ (Solu Medrol 06:00 Famotidine Injection PHA 02/22/25 In Process (Pepcid Injection) 10:00 Albuterol Medneb PHA 02/22/25 In Process (Ventolin Medneb) 01:00 Ipratropium Medneb PHA 02/22/25 In Process (Atrovent Medneb) 01:00 Atorvastatin (Lipitor) PHA 02/22/25 In Process 22:00 Hydralazine Injection PHA 02/22/25 In Process (Apresoline Inject 01:00 Apixaban (Eliquis) PHA 02/22/25 In Process 10:00 Allergies MK 02/22/25 In Process 00:56 Code Status CODE 02/22/25 Transmitted 00:56 Sodium Chloride Lock PHA 02/22/25 In Process (Saline Lock Ns) 06:00 Oxygen Per Hour RT 02/22/25 Transmitted 00:56 Hydrocodone-Acet PHA 02/22/25 In Process 5/325mg Tab ([place] 01:00 Ondansetron Hcl PHA 02/22/25 In Process (Zofran) 01:00 Docusate Sodium PHA 02/22/25 In Process Capsule (Colace 01:00 Complete Blood Count LAB 02/23/25 Verified 04:00 Comprehensive LAB 02/23/25 Verified Metabolic Panel 04:00 Cardiac DIET 02/22/25 Transmitted Diet-2gna,Lofat,Lochol Breakfast Condition: Serious MK 02/22/25 In Process 00:56 Acetaminophen Tablet PHA 02/22/25 In Process (Tylenol Tablet) 01:00 Bedrest With Bathroom MK 02/22/25 In Process Privileg 00:56 Maintain Bed Rest MK 02/22/25 In Process 00:56 Sequential MK 02/22/25 In Process Compression Device Furosemide Injection PHA 02/22/25 In Process (Lasix Injection) 10:00 Admit ADMIT 02/22/25 Transmitted 01:18 Nitroglycerin PHA 02/22/25 Transmitted Sublingual (Ntrostat 01:30 Morphine Sulfate PHA 02/22/25 Transmitted Injection 01:30 Stat Ekg For Chest [facility] 02/22/25 Transmitted Pain 01:18 Notify Of Changes [facility] 02/22/25 Transmitted From Base 01:18 Business Objects Architect For [facility] 02/22/25 Transmitted 24 Hours 01:18 Emergency Dysrhythmia [facility] 02/22/25 Transmitted Protocol 01:18 Rhythm Strips Once MK 02/22/25 Transmitted Every Shift 01:18 Oxygen By Nasal RT 02/22/25 Transmitted Cannula 01:18 Problem List: (1) Acute respiratory distress (2) COPD with acute exacerbation (3) Pulmonary vascular congestion (4) Generalized weakness Date of Service: Feb 22, 2025 Billing Provider: HOUSTON HANNA DNP Common Visit Codes: [id number] INP/OBS CARE (HIGH) HOUSTON HANNA DNP Feb 22, 2025 01:19
[2025-02-22] MEDS ORDERED: MORPHINE SULFATE INJ 2 MG/ml SYRG IV PRN (01:30)
[2025-02-22] MEDS ORDERED: NITROGLYCERIN 0.4 MG SL TAB SL PRN (01:30)
[2025-02-22] MEDS: methylPREDNISolone SOD SUCC 125 MG/2 ML VL IV ONE (01:49)
[2025-02-22] MEDS: FUROSEMIDE 100 MG/10ML VIAL IV ONE (01:51)
[2025-02-22 02:51] LABS: Opiate Scree,Urine Neg (NEGATIVE)
[2025-02-22 02:52] LABS: Amphetamine Screen, Urine Neg (NEGATIVE); Barbiturate Scree,Urine Neg (NEGATIVE); Benzodiazephine Screen, Urine Neg (NEGATIVE); Cannabinoid Screen, Urine Neg (NEGATIVE); Cocaine Screen, Urine Neg (NEGATIVE); Phencyclidine Screen, Urine Neg (NEGATIVE)
[2025-02-22 04:25] LABS: Hemoglobin 17.1 g/dL (13.5-17.5)
[2025-02-22 04:27] LABS: Hematocrit 51.5 % (41.0-53.0); Mean Corpuscular Hemoglobin 27.8 pg (28.0-32.0); Mean Corpuscular Volume 83.7 fL (80.0-100.0); Nucleated Red Blood Cells % 0.0 %
[2025-02-22 04:43] LABS: Alanine Aminotransferase 30 U/L (7-40); Anion Gap 11 (5-15); BUN/Creatinine Ratio 17.5 (10.0-20.0); Blood Urea Nitrogen 18 mg/dL (9-23); Calcium 9.6 mg/dL (8.7-10.4); Carbon Dioxide 30 mmol/L (20-31); Chloride 106 mmol/L (98-107); Glucose 103 mg/dL (74-106); Potassium 4.3 mmol/L (3.5-5.1); Total Protein 7.4 g/dL (5.7-8.2)
[2025-02-22 04:44] LABS: Albumin 4.7 g/dL (3.2-4.8); Alkaline Phosphatase 121 U/L (46-116); Sodium 147 mmol/L (136-145)
[2025-02-22 04:45] LABS: Bilirubin, Total 1.1 mg/dL (0.2-1.0)
[2025-02-22] MEDS: SODIUM CHLOR 0.9% PF (SALINE LOCK) 10ML VIAL/SYR IV SCH (06:26)
[2025-02-22] MEDS: methylPREDNISolone SOD SUCC 40 MG/ML VL IV SCH ×2 (06:26→22:00)
[2025-02-22] MEDS: FAMOTIDINE (10MG/ML) 2ML VL IV SCH (10:20)
[2025-02-22] MEDS: FUROSEMIDE 20 MG/2 ML VIAL IV SCH (10:20)
[2025-02-22] MEDS: APIXABAN 5 MG TAB PO SCH (10:20)
[2025-02-22] MEDS: IPRATROPIUM BROM 0.5 MG/2.5ML INH SOL NEB PRN (10:42)
[2025-02-22] MEDS: ALBUTEROL SULF 2.5 MG/0.5ML(0.5%) NEB SOLN NEB PRN (10:42)
[2025-02-22] MEDS: ALBUTEROL SULF 2.5 MG/0.5ML(0.5%) NEB SOLN ONE (14:55)
[2025-02-22] MEDS: IPRATROPIUM BROM 0.5 MG/2.5ML INH SOL ONE (14:55)
--- NOTE | 2025-02-22 15:10 | DVHPN2 ---
Reviewed: H&P Changes from previous H/P or p: No Changes General: Per HPI Eyes: No Pain, No Vision change, No Conjunctivae inflammation, No Eyelid inflammation, No Other, No Redness ENT: No Ear pain, No Ear discharge, No Nose pain, No Nose discharge, No Nose congestion, No Mouth pain, No Mouth swelling, No Throat pain, No Throat swelling, No Other Cardiovascular: No Chest Pain, No Palpitations, No Orthopnea, No Paroxysmal Noc. Dyspnea, No Edema, No Lt Headedness, No Other Respiratory: No Cough, No Dry; Shortness of breath; No SOB with excertion, No Wheezing, No Hemoptysis, No Pleuritic Pain, No Sputum; Other (SOB at rest) Gastrointestinal: No Nausea, No Vomiting, No Abdominal Pain, No Diarrhea, No Constipation, No Melena, No Hematochezia, No Other Genitourinary: No Dysuria, No Frequency, No Incontinence, No Hematuria, No Retention, No Other Musculoskeletal: No other, No neck pain, No shoulder pain, No arm pain, No back pain, No hand pain, No leg pain, No foot pain Skin: No Rash, No Lesions, No Jaundice, No Bruising, No Other Objective Vitals Vital Signs Date Time Temp Pulse Resp B/P (MAP) Pulse Ox O2 Delivery O2 Flow Rate FiO2 02/22/25 14:00 107 18 124/81 (95) 92 02/22/25 12:00 98.4 98.4 02/22/25 10:42 Nasal Cannula 4.0 02/22/25 10:42 36 Exam GEN: Healthy appearing, well-developed, NAD. HEENT: NC/AT; MMM. CV: S3, no appreciable JVD, otherwise regular LUNGS: Significant rales bilaterally, also associated with significant expiratory wheeze. ABD: Soft, NT/ND, NBS, no masses or organomegaly. EXT: skin Warm, well perfused. no rashes. No clubbing, cyanosis, or edema. NEURO: Ambulating with no limitations. No focal deficits. Medications Current Medications Medications Dose Ordered Sig/Johana Route Start Time Stop Time Status Last Admin Dose Admin Famotidine 20 mg Q12HR IV 02/22/25 10:00 02/22/25 10:20 20 MG Atorvastatin Calcium 20 mg HS PO 02/22/25 22:00 Hydralazine HCl 10 mg Q6HP PRN IV 02/22/25 01:00 Apixaban 5 mg BID PO 02/22/25 10:00 02/22/25 10:20 5 MG Sodium Chloride 10 ml Q8HR IV 02/22/25 06:00 02/22/25 14:56 10 ML Acetaminophen/ Hydrocodone Bitart 1 tab Q4HP PRN PO 02/22/25 01:00 Ondansetron HCl 4 mg Q4HP PRN IV 02/22/25 01:00 Docusate Sodium 100 mg BIDPRN PRN PO 02/22/25 01:00 Acetaminophen 650 mg Q6HP PRN PO 02/22/25 01:00 Furosemide 20 mg DAILY IV 02/22/25 10:00 02/22/25 10:20 20 MG Nitroglycerin 0.4 mg Q5MINP PRN SL 02/22/25 01:30 Morphine Sulfate 2 mg Q30M PRN IV 02/22/25 01:30 Albuterol 2.5 mg Q4HPRN NEB 02/22/25 18:00 Future Hold Ipratropium [place] 0.5 mg Q4HPRN NEB 02/22/25 18:00 Future Hold Methylprednisolone Sodium Succinate 40 mg BID IV 02/22/25 22:00 Laboratory Results Laboratory Tests 02/22/25 03:36 Chemistry Test 02/21/25 22:45 02/22/25 03:36 Albumin 4.3 g/dL (3.2-4.8) 4.7 g/dL (3.2-4.8) Calcium Level 9.4 mg/dL (8.7-10.4) 9.6 mg/dL (8.7-10.4) Magnesium Level 1.8 mg/dL (1.6-2.6) Total Protein 6.6 g/dL (5.7-8.2) 7.4 g/dL (5.7-8.2) Coagulation Test 02/21/25 22:45 D-Dimer, Quantitative 0.24 mg/L FEU (0.0-0.49) Cardiac Markers Test 02/21/25 22:45 B-Type Natriuretic Peptide 67.47 pg/mL (0-100) LFT Test 02/21/25 22:45 02/22/25 03:36 Alanine Aminotransferase (ALT) 27 U/L (7-40) 30 U/L (7-40) Alkaline Phosphatase 110 U/L (46-116) 121 U/L (46-116) H Aspartate Amino Transferase (AST) 25 U/L (13-40) 29 U/L (13-40) Total Bilirubin 0.8 mg/dL (0.2-1.0) 1.1 mg/dL (0.2-1.0) H Labs and/or images reviewed: Labs reviewed by me, Image(s) reviewed by me Assessment/Plan Assessment/Plan 64-year-old male with past medical history of hyperlipidemia, hypertension, PE, COPD, CHF, and DVT presented to [facility] ED with complaint of shortness of breaths. Patient reports he has been experiencing difficulty breathing despite being on oxygen 2 L/min at home, unrelieved with breathing treatment medication, increased work of breathing, getting worse that prompted this visit. 02/22: Patient has history of CHF/COPD, he also endorses he has some valvular problems. We will need echo. He has significant rales and appears in significant respiratory distress. We will schedule duo nebs q.4 continuous scheduled. Continue Solu-Medrol 40 IV b.i.d.. We will do BiPAP nightly 03/22. Increase Lasix to 40 IV b.i.d.. Start azithromycin 500 daily IV. Continue management and follow up thereafter. Diagnosis: Acute CBD, in exacerbation, with pneumonitis CHF exacerbation Acute pneumonia possible hyperlipidemia, hypertension, hx PE, hx DVT Plan: Lasix 40 IV b.i.d. Solu-Medrol 40 IV b.i.d. Nebulizers duo nebs q.4 BiPAP 03/22 nightly Continue other home medications Tele Full code Plan discussed with: Patient My Orders Orders - YOLY GRIMES MD Procedure Category Date Status Time Albuterol Medneb PHA 02/22/25 In Process (Ventolin Medneb) 18:00 Ipratropium Medneb PHA 02/22/25 In Process (Atrovent Medneb) 18:00 Methylprednisolone PHA 02/22/25 In Process Sod Succ (Solu Medrol 22:00 Date of Service: Feb 22, 2025 Billing Provider: YOLY GRIMES MD Common Visit Codes: [id number] INP/OBS CARE(HIGH) YOLY GRIMES MD Feb 22, 2025 15:10
[2025-02-22] MEDS: ALBUTEROL SULF 2.5 MG/0.5ML(0.5%) NEB SOLN NEB SCH ×2 (16:32→18:43)
[2025-02-22] MEDS: IPRATROPIUM BROM 0.5 MG/2.5ML INH SOL NEB SCH ×2 (16:32→18:43)
[2025-02-22] MEDS: ATORVASTATIN 20 MG TAB PO SCH (22:00)
[2025-02-22] MEDS ORDERED: methylPREDNISolone SOD SUCC 40 MG/ML VL IV SCH (22:00)
[2025-02-23] VITALS (21 sets, daily range): BP systolic 114–125; BP diastolic 65–91; PULSE 58–103; RESP 17–94; TEMP 97.6–98.4; O2SAT 91–99
[2025-02-23] MEDS ORDERED: ALBU108A5 PO (00:37)
[2025-02-23 07:26] LABS: Hematocrit 49.1 % (41.0-53.0); Hemoglobin 16.2 g/dL (13.5-17.5); Mean Corpuscular Hemoglobin 27.7 pg (28.0-32.0); Mean Corpuscular Volume 84.0 fL (80.0-100.0); Nucleated Red Blood Cells % 0.1 %
[2025-02-23 07:43] LABS: Alanine Aminotransferase 22 U/L (7-40); Alkaline Phosphatase 99 U/L (46-116); Anion Gap 12 (5-15); BUN/Creatinine Ratio 24.1 (10.0-20.0); Calcium 9.7 mg/dL (8.7-10.4); Carbon Dioxide 26 mmol/L (20-31); Chloride 103 mmol/L (98-107); Potassium 4.4 mmol/L (3.5-5.1); Sodium 141 mmol/L (136-145); Total Protein 6.7 g/dL (5.7-8.2)
[2025-02-23 07:44] LABS: Albumin 4.3 g/dL (3.2-4.8); Bilirubin, Total 0.5 mg/dL (0.2-1.0)
[2025-02-23 07:45] LABS: Blood Urea Nitrogen 26 mg/dL (9-23); Glucose 149 mg/dL (74-106)
[2025-02-23] MEDS: FUROSEMIDE 20 MG/2 ML VIAL IV SCH (08:56)
--- NOTE | 2025-02-23 11:01 | DVHPN2 ---
Reviewed: H&P Changes from previous H/P or p: No Changes General: Per HPI Eyes: No Pain, No Vision change, No Conjunctivae inflammation, No Eyelid inflammation, No Other, No Redness ENT: No Ear pain, No Ear discharge, No Nose pain, No Nose discharge, No Nose congestion, No Mouth pain, No Mouth swelling, No Throat pain, No Throat swelling, No Other Cardiovascular: No Chest Pain, No Palpitations, No Orthopnea, No Paroxysmal Noc. Dyspnea, No Edema, No Lt Headedness, No Other Respiratory: No Cough, No Dry; Shortness of breath; No SOB with excertion, No Wheezing, No Hemoptysis, No Pleuritic Pain, No Sputum; Other (SOB at rest) Gastrointestinal: No Nausea, No Vomiting, No Abdominal Pain, No Diarrhea, No Constipation, No Melena, No Hematochezia, No Other Genitourinary: No Dysuria, No Frequency, No Incontinence, No Hematuria, No Retention, No Other Musculoskeletal: No other, No neck pain, No shoulder pain, No arm pain, No back pain, No hand pain, No leg pain, No foot pain Skin: No Rash, No Lesions, No Jaundice, No Bruising, No Other Objective Vitals Vital Signs Date Time Temp Pulse Resp B/P (MAP) Pulse Ox O2 Delivery O2 Flow Rate FiO2 02/23/25 09:26 90 20 95 02/23/25 09:20 Nasal Cannula 2.0 02/23/25 09:20 28 02/23/25 09:00 97.8 119/78 (92) 97.8 Intake/Output Intake and Output 02/23/25 07:00 Intake Total 600 ml Output Total 650 ml Balance -50 ml Intake Oral 600 ml Output Urine Total 650 ml Exam GEN: Healthy appearing, well-developed, NAD. HEENT: NC/AT; MMM. CV: S3, no appreciable JVD, otherwise regular LUNGS: Significant rales bilaterally, also associated with significant expiratory wheeze. ABD: Soft, NT/ND, NBS, no masses or organomegaly. EXT: skin Warm, well perfused. no rashes. No clubbing, cyanosis, or edema. NEURO: Ambulating with no limitations. No focal deficits. Medications Current Medications Medications Dose Ordered Sig/Johana Route Start Time Stop Time Status Last Admin Dose Admin Famotidine 20 mg Q12HR IV 02/22/25 10:00 02/23/25 08:55 20 MG Atorvastatin Calcium 20 mg HS PO 02/22/25 22:00 02/22/25 22:00 20 MG Hydralazine HCl 10 mg Q6HP PRN IV 02/22/25 01:00 Apixaban 5 mg BID PO 02/22/25 10:00 02/23/25 08:55 5 MG Sodium Chloride 10 ml Q8HR IV 02/22/25 06:00 02/23/25 05:19 10 ML Acetaminophen/ Hydrocodone Bitart 1 tab Q4HP PRN PO 02/22/25 01:00 Ondansetron HCl 4 mg Q4HP PRN IV 02/22/25 01:00 Docusate Sodium 100 mg BIDPRN PRN PO 02/22/25 01:00 Acetaminophen 650 mg Q6HP PRN PO 02/22/25 01:00 Nitroglycerin 0.4 mg Q5MINP PRN SL 02/22/25 01:30 Morphine Sulfate 2 mg Q30M PRN IV 02/22/25 01:30 Albuterol 2.5 mg Q4H NEB 02/22/25 18:00 02/23/25 09:20 2.5 MG Ipratropium [place] 0.5 mg Q4H NEB 02/22/25 18:00 02/23/25 09:20 0.5 MG Methylprednisolone Sodium Succinate 40 mg TID IV 02/22/25 22:00 02/23/25 05:19 40 MG Laboratory Results Laboratory Tests 02/23/25 05:04 Chemistry Test 02/23/25 05:04 Albumin 4.3 g/dL (3.2-4.8) Calcium Level 9.7 mg/dL (8.7-10.4) Total Protein 6.7 g/dL (5.7-8.2) LFT Test 02/23/25 05:04 Alanine Aminotransferase (ALT) 22 U/L (7-40) Alkaline Phosphatase 99 U/L (46-116) Aspartate Amino Transferase (AST) 24 U/L (13-40) Total Bilirubin 0.5 mg/dL (0.2-1.0) Labs and/or images reviewed: Labs reviewed by me, Image(s) reviewed by me Assessment/Plan Assessment/Plan 64-year-old male with past medical history of hyperlipidemia, hypertension, PE, COPD, CHF, and DVT presented to [facility] ED with complaint of shortness of breaths. Patient reports he has been experiencing difficulty breathing despite being on oxygen 2 L/min at home, unrelieved with breathing treatment medication, increased work of breathing, getting worse that prompted this visit. 02/22: Patient has history of CHF/COPD, he also endorses he has some valvular problems. We will need echo. He has significant rales and appears in significant respiratory distress. We will schedule duo nebs q.4 continuous scheduled. Continue Solu-Medrol 40 IV b.i.d.. We will do BiPAP nightly 03/22. Increase Lasix to 40 IV b.i.d.. Start azithromycin 500 daily IV. Continue management and follow up thereafter. 02/23: BUN is going up we will stop Lasix. Continue Solu-Medrol 40 b.i.d., continue nebs q.4, continue BiPAP night night 03/22, continuing nasal oxygen with SP O2 goal 88-92%. Continuing IV antibiotics ceftriaxone azithromycin. Patient continues to be in severe acute COPD exacerbation, with pneumonitis. Diagnosis: Acute CBD, in exacerbation, with pneumonitis CHF exacerbation Acute pneumonia possible hyperlipidemia, hypertension, hx PE, hx DVT Plan: Lasix 40 IV b.i.d. Solu-Medrol 40 IV b.i.d. Nebulizers duo nebs q.4 BiPAP 03/22 nightly Continue other home medications Tele Full code Plan discussed with: Patient My Orders Orders - YOLY GRIMES MD Procedure Category Date Status Time Albuterol Medneb PHA 02/22/25 In Process (Ventolin Medneb) 18:00 Ipratropium Medneb PHA 02/22/25 In Process (Atrovent Medneb) 18:00 Methylprednisolone PHA 02/22/25 In Process Sod Succ (Solu Medrol 22:00 BIPAP RT 02/22/25 Logged 17:32 Mrsa Screen DUNIA 02/22/25 In Process 20:09 Date of Service: Feb 23, 2025 Billing Provider: YOLY GRIMES MD Common Visit Codes: [id number] INP/OBS CARE(HIGH) YOLY GRIMES MD Feb 23, 2025 11:00
[2025-02-23] MEDS: AZITHROMYCIN 500MG/ 250ML 250 ML IV ONE (12:38)
[2025-02-23] MEDS: methylPREDNISolone SOD SUCC 40 MG/ML VL IV SCH (22:01)
[2025-02-24] VITALS (23 sets, daily range): BP systolic 106–124; BP diastolic 63–83; PULSE 58–99; RESP 18–22; TEMP 97–98.9; O2SAT 91–100
[2025-02-24 06:02] LABS: Sodium 143 mmol/L (136-145)
[2025-02-24 06:03] LABS: Calcium 9.5 mg/dL (8.7-10.4); Carbon Dioxide 30 mmol/L (20-31)
[2025-02-24 06:08] LABS: BUN/Creatinine Ratio 21.3 (10.0-20.0); Blood Urea Nitrogen 23 mg/dL (9-23)
[2025-02-24 07:16] LABS: Glucose 136 mg/dL (74-106)
[2025-02-24 07:18] LABS: Potassium 5.6 mmol/L (3.5-5.1)
[2025-02-24] MEDS: SODIUM ZIRCONIUM CYCL 10 GM PAK PO ONE (08:24)
[2025-02-24 09:19] LABS: Anion Gap 9 (5-15)
[2025-02-24] MEDS: AZITHROMYCIN 500MG/ 250ML 250 ML IV SCH (09:59)
--- NOTE | 2025-02-24 13:51 | DVHPN2 ---
Reviewed: H&P Changes from previous H/P or p: No Changes General: Per HPI Eyes: No Pain, No Vision change, No Conjunctivae inflammation, No Eyelid inflammation, No Other, No Redness ENT: No Ear pain, No Ear discharge, No Nose pain, No Nose discharge, No Nose congestion, No Mouth pain, No Mouth swelling, No Throat pain, No Throat swelling, No Other Cardiovascular: No Chest Pain, No Palpitations, No Orthopnea, No Paroxysmal Noc. Dyspnea, No Edema, No Lt Headedness, No Other Respiratory: No Cough, No Dry; Shortness of breath; No SOB with excertion, No Wheezing, No Hemoptysis, No Pleuritic Pain, No Sputum; Other (SOB at rest) Gastrointestinal: No Nausea, No Vomiting, No Abdominal Pain, No Diarrhea, No Constipation, No Melena, No Hematochezia, No Other Genitourinary: No Dysuria, No Frequency, No Incontinence, No Hematuria, No Retention, No Other Musculoskeletal: No other, No neck pain, No shoulder pain, No arm pain, No back pain, No hand pain, No leg pain, No foot pain Skin: No Rash, No Lesions, No Jaundice, No Bruising, No Other Objective Vitals Vital Signs Date Time Temp Pulse Resp B/P (MAP) Pulse Ox O2 Delivery O2 Flow Rate FiO2 02/24/25 10:47 99 20 95 02/24/25 10:00 Nasal Cannula 2.0 02/24/25 10:00 28 02/24/25 09:00 98.2 113/79 (90) 98.2 Intake/Output Intake and Output 02/24/25 07:00 Intake Total 1400 ml Output Total 1400 ml Balance 0 ml Intake Oral 1100 ml IV Total 300 ml Output Urine Total 1400 ml Exam GEN: Healthy appearing, well-developed, NAD. HEENT: NC/AT; MMM. CV: S3, no appreciable JVD, otherwise regular LUNGS: Significant rales bilaterally, also associated with significant expiratory wheeze. ABD: Soft, NT/ND, NBS, no masses or organomegaly. EXT: skin Warm, well perfused. no rashes. No clubbing, cyanosis, or edema. NEURO: Ambulating with no limitations. No focal deficits. Medications Current Medications Medications Dose Ordered Sig/Johana Route Start Time Stop Time Status Last Admin Dose Admin Famotidine 20 mg Q12HR IV 02/22/25 10:00 02/24/25 08:24 20 MG Atorvastatin Calcium 20 mg HS PO 02/22/25 22:00 02/23/25 22:00 20 MG Hydralazine HCl 10 mg Q6HP PRN IV 02/22/25 01:00 Apixaban 5 mg BID PO 02/22/25 10:00 02/24/25 08:25 5 MG Sodium Chloride 10 ml Q8HR IV 02/22/25 06:00 02/24/25 13:20 10 ML Acetaminophen/ Hydrocodone Bitart 1 tab Q4HP PRN PO 02/22/25 01:00 Ondansetron HCl 4 mg Q4HP PRN IV 02/22/25 01:00 Docusate Sodium 100 mg BIDPRN PRN PO 02/22/25 01:00 Acetaminophen 650 mg Q6HP PRN PO 02/22/25 01:00 Nitroglycerin 0.4 mg Q5MINP PRN SL 02/22/25 01:30 Morphine Sulfate 2 mg Q30M PRN IV 02/22/25 01:30 Albuterol 2.5 mg Q4H NEB 02/22/25 18:00 02/24/25 10:46 2.5 MG Ipratropium [place] 0.5 mg Q4H NEB 02/22/25 18:00 02/24/25 10:46 0.5 MG Methylprednisolone Sodium Succinate 40 mg BID IV 02/23/25 22:00 02/24/25 08:24 40 MG Azithromycin 250 ml @ 125 mls/hr DAILY IV 02/24/25 10:00 02/24/25 09:59 125 MLS/HR Ceftriaxone Sodium 50 ml @ 100 mls/hr DAILY@09 IV 02/24/25 09:00 02/24/25 08:25 100 MLS/HR Laboratory Results Laboratory Tests 02/23/25 05:04 02/24/25 05:35 Chemistry Test 02/24/25 05:35 Calcium Level 9.5 mg/dL (8.7-10.4) Microbiology Microbiology Date/Time Source Procedure Growth Status 02/22/25 20:14 Nose MRSA Screen - Final Complete Labs and/or images reviewed: Labs reviewed by me, Image(s) reviewed by me Assessment/Plan Assessment/Plan 64-year-old male with past medical history of hyperlipidemia, hypertension, PE, COPD, CHF, and DVT presented to [facility] ED with complaint of shortness of breaths. Patient reports he has been experiencing difficulty breathing despite being on oxygen 2 L/min at home, unrelieved with breathing treatment medication, increased work of breathing, getting worse that prompted this visit. 02/22: Patient has history of CHF/COPD, he also endorses he has some valvular problems. We will need echo. He has significant rales and appears in significant respiratory distress. We will schedule duo nebs q.4 continuous scheduled. Continue Solu-Medrol 40 IV b.i.d.. We will do BiPAP nightly 03/22. Increase Lasix to 40 IV b.i.d.. Start azithromycin 500 daily IV. Continue management and follow up thereafter. 02/23: BUN is going up we will stop Lasix. Continue Solu-Medrol 40 b.i.d., continue nebs q.4, continue BiPAP night night 03/22, continuing nasal oxygen with SP O2 goal 88-92%. Continuing IV antibiotics ceftriaxone azithromycin. Patient continues to be in severe acute COPD exacerbation, with pneumonitis. 02/24: Patient continues to feel sitter bili better with the BiPAP, there is questionable possible undiagnosed ROGELIO, patient needs sleep study through PCP and likely BiPAP/CPAP at home. Continue treatment for COPD exacerbation continue med nebs, Solu-Medrol, IV antibiotics. Need to continue therapy 1 more day. Patient at home level of oxygen 2 L. ambulating but significant short of breath, continue other present management. Patient was hypokalemic Lokelma 10 given today. We will recheck BNP. - echo recently done, 2 different medical records for patient need to be combined by admissions. Echo recent without concerns preserved ejection fraction, RVSP not done, patient also had region FRANKIE., patient has critical . Can be followed up outpatient. Diagnosis: Acute CBD, in exacerbation, with pneumonitis CHF exacerbation Acute pneumonia possible hyperlipidemia, hypertension, hx PE, hx DVT Plan: Lasix 40 IV b.i.d. Solu-Medrol 40 IV b.i.d. Nebulizers duo nebs q.4 BiPAP / nightly Continue other home medications Tele Full code Plan discussed with: Patient My Orders Orders - YOLY GRIMES MD Procedure Category Date Status Time Echo 2d Mode Cardiac US 02/24/25 Logged DOP 13:47 Date of Service: Feb 24, 2025 Billing Provider: YOLY GRIMES MD Common Visit Codes: [id number] INP/OBS CARE(HIGH) YOLY GRIMES MD Feb 24, 2025 13:51
[2025-02-25] VITALS (16 sets, daily range): BP systolic 100–151; BP diastolic 71–92; PULSE 63–95; RESP 18–21; TEMP 36.3; O2SAT 91–99
[2025-02-25 05:52] LABS: Anion Gap 8 (5-15); Carbon Dioxide 29 mmol/L (20-31); Chloride 105 mmol/L (98-107); Potassium 4.6 mmol/L (3.5-5.1); Sodium 142 mmol/L (136-145)
[2025-02-25 05:54] LABS: Calcium 9.2 mg/dL (8.7-10.4)
[2025-02-25 05:58] LABS: BUN/Creatinine Ratio 18.7 (10.0-20.0); Blood Urea Nitrogen 20 mg/dL (9-23)
[2025-02-25 05:59] LABS: Glucose 156 mg/dL (74-106)
--- NOTE | 2025-02-25 10:14 | DVHDS2 ---
Discharge Summary Date of Admission Feb 22, 2025 at 01:18 Date of Discharge: Feb 25, 2025 Labs/Diagnostic Data: Laboratory Results Test 02/25/25 05:00 02/23/25 05:04 02/22/25 02:26 02/22/25 01:50 Sodium Level 142 mmol/L (136-145) Potassium Level 4.6 mmol/L (3.5-5.1) Chloride Level 105 mmol/L (98-107) Carbon Dioxide Level 29 mmol/L (20-31) Anion Gap 8 (5-15) Blood Urea Nitrogen 20 mg/dL (9-23) Creatinine 1.07 mg/dL (0.700-1.30) Glomerular Filtration Rate Calc 77 mL/min (>90) BUN/Creatinine Ratio 18.7 (10.0-20.0) Serum Glucose 156 mg/dL (74-106) Calcium Level 9.2 mg/dL (8.7-10.4) White Blood Count 13.7 10^3/uL (4.4-10.8) Red Blood Count 5.85 10^6/uL (4.5-5.90) Hemoglobin 16.2 g/dL (13.5-17.5) Hematocrit 49.1 % (41.0-53.0) Mean Corpuscular Volume 84.0 fL (80.0-100.0) Mean Corpuscular Hemoglobin 27.7 pg (28.0-32.0) Mean Corpuscular Hemoglobin Concent 32.9 g/dL (32.0-36.0) Red Cell Distribution Width 16.6 % (11.8-14.3) Platelet Count 171 10^3/uL (140-450) Mean Platelet Volume 8.4 fL (6.9-10.8) Neutrophils (%) (Auto) 90.5 % (37.0-80.0) Lymphocytes (%) (Auto) 5.0 % (10.0-50.0) Monocytes (%) (Auto) 4.4 % (0.0-12.0) Eosinophils (%) (Auto) 0.0 % (0.0-7.0) Basophils (%) (Auto) 0.1 % (0.0-2.0) Neutrophils # (Auto) 12.4 10 ^3/uL (1.6-8.6) Lymphocytes # (Auto) 0.7 10 ^3/uL (0.4-5.4) Monocytes # (Auto) 0.6 10 ^3/uL (0-1.3) Eosinophils # (Auto) 0 10 ^3/uL (0-0.8) Basophils # (Auto) 0 10 ^3/uL (0-0.2) Nucleated Red Blood Cells 0.1 % Total Bilirubin 0.5 mg/dL (0.2-1.0) Aspartate Amino Transferase (AST) 24 U/L (13-40) Alanine Aminotransferase (ALT) 22 U/L (7-40) Alkaline Phosphatase 99 U/L (46-116) Total Protein 6.7 g/dL (5.7-8.2) Albumin 4.3 g/dL (3.2-4.8) Urine Opiates Screen Neg (NEGATIVE) Urine Fentanyl Screen Neg (NEGATIVE) Urine Barbiturates Screen Neg (NEGATIVE) Urine Phencyclidine Screen Neg (NEGATIVE) Urine Amphetamines Screen Neg (NEGATIVE) Urine Benzodiazepines Screen Neg (NEGATIVE) Urine Cocaine Screen Neg (NEGATIVE) Urine Cannabinoids Screen Neg (NEGATIVE) Troponin I High Sensitivity 53 ng/L (</=54) Test 02/21/25 22:45 D-Dimer, Quantitative 0.24 mg/L FEU (0.0-0.49) Magnesium Level 1.8 mg/dL (1.6-2.6) B-Type Natriuretic Peptide 67.47 pg/mL (0-100) Other Laboratory Tests 02/25/25 05:00 02/23/25 05:04 Brief Hx & Hospital Course: 64-year-old male with past medical history of hyperlipidemia, hypertension, PE, COPD, CHF, and DVT presented to [facility] ED with complaint of shortness of breaths. Patient reports he has been experiencing difficulty breathing despite being on oxygen 2 L/min at home, unrelieved with breathing treatment medication, increased work of breathing, getting worse that prompted this visit. 02/22: Patient has history of CHF/COPD, he also endorses he has some valvular problems. We will need echo. He has significant rales and appears in significant respiratory distress. We will schedule duo nebs q.4 continuous scheduled. Continue Solu-Medrol 40 IV b.i.d.. We will do BiPAP nightly 03/22. Increase Lasix to 40 IV b.i.d.. Start azithromycin 500 daily IV. Continue management and follow up thereafter. 02/23: BUN is going up we will stop Lasix. Continue Solu-Medrol 40 b.i.d., continue nebs q.4, continue BiPAP night night 03/22, continuing nasal oxygen with SP O2 goal 88-92%. Continuing IV antibiotics ceftriaxone azithromycin. Patient continues to be in severe acute COPD exacerbation, with pneumonitis. 02/24: Patient continues to feel sitter bili better with the BiPAP, there is questionable possible undiagnosed ROGELIO, patient needs sleep study through PCP and likely BiPAP/CPAP at home. Continue treatment for COPD exacerbation continue med nebs, Solu-Medrol, IV antibiotics. Need to continue therapy 1 more day. Patient at home level of oxygen 2 L. ambulating but significant short of breath, continue other present management. Patient was hypokalemic Lokelma 10 given today. We will recheck BNP. - echo recently done, 2 different medical records for patient need to be combined by admissions. Echo recent without concerns preserved ejection fraction, RVSP not done, patient also had region FRANKIE., patient has critical . Can be followed up outpatient. 02/25: Patient breathing back to baseline, back to home oxygen level 2 L nasal cannula. Vital signs stable, stable for discharge as per plan below. Patient to continue prednisone 40 mg daily for 5 days, azithromycin 500 mg daily for 5 days, continue home inhalers and prn med nebs. Continue other home medications not mentioned above. Follow up with PCP to review discharge, [place] [facility] 1-2 weeks. Diagnosis: Acute COPD, in exacerbation, with pneumonitis CHF exacerbation, diastolic dysfuction Acute pneumonia possible , gram neg/gram pos critical hyperlipidemia hypertension hx PE hx DVT Plan: - prednisone 40 mg daily for 5 days, -azithromycin 500 mg daily for 5 days, -continue home inhalers and prn med nebs. -Continue other home medications not mentioned above. -Follow up with PCP to review discharge, [place] [facility] 1-2 [place]. Condition at Discharge: Fair Final Diagnosis/Problems List Acute COPD, in exacerbation, with pneumonitis CHF exacerbation, diastolic dysfuction Acute pneumonia possible , gram neg/gram pos critical hyperlipidemia hypertension hx PE hx DVT Discharge Disposition: Home Discharge Instruct/Medications Scheduled Apixaban [place] (Eliquis), 5 MG PO BID, (Reported) Atorvastatin Calcium (Lipitor), 1 TAB PO QPM, (Reported) Azithromycin (Zithromax Tablet), 250 MG PO DAILY Bupropion Hcl (Bupropion Hcl Sr), 150 MG PO BID, (Reported) Cyclobenzaprine Hcl (Cyclobenzaprine Hcl), 5 MG PO DAILY, (Reported) Ezetimibe (Ezetimibe), 10 MG PO DAILY, (Reported) Ferrous Sulfate (Ferrous Sulfate), 325 MG PO DAILY, (Reported) Furosemide (Furosemide), 1 TAB PO DAILY, (Reported) Methylprednisolone (Methylprednisolone Dose P), 4 MG PO DAILY Potassium Chloride (Potassium Chloride Cr), 10 MEQ PO DAILY, (Reported) Prednisone (Prednisone), 40 MG PO DAILY Scheduled PRN Albuterol Sulfate (Albuterol Sulfate Hfa), 2 PUFF PO for SHORTNESS OF BREATH, (Reported) Discharge Statement: "Patient was advised to return to the ER or call 911 if any headaches, dizziness, shortness of breath, chest pain, abdominal pain, bleeding, fevers, or worsening of medical condition. Patient was counseled about treatment plan, medications, possible side effects, patientverbalized understanding. All questions were answered to the best of my ability. This discharge took greater then 30 minutes in planning, reviewing documentation, counseling the patient, and discussing with other team members." ASSESSMENT ASSESSMENT Assessment Date of Service: Feb 25, 2025 Billing Provider: YOLY GRIMES MD Common Visit Codes: 70344-MAL/OBS DISCH DAY >30min YOLY GRIMES MD Feb 25, 2025 10:14
[2025-02-25] MEDS ORDERED: PRED20TA2 PO (14:15)
[2025-02-25] MEDS ORDERED: AZIT500T66 PO (14:15)
== END 2025-02-25 16:45 | disposition home or self-care (01) | DRG 205 ==
LOC: ER 22:26 → OVERFLOW 02-22 01:18 → TELE-CENTR 02-22 23:55
PROVIDERS: ADMIT Student in an Organized Health Care Education/Training Program; ATTEND Student in an Organized Health Care Education/Training Program
PROC: 5A09357 Assistance with Respiratory Ventilation, Less than 24 Consecutive Hours, Continuous Positive Airway Pressure (ICD-10-PCS; 2025-02-23)
PROC: 5A09357 Assistance with Respiratory Ventilation, Less than 24 Consecutive Hours, Continuous Positive Airway Pressure (ICD-10-PCS; 2025-02-24)
PROC: 5A09357 Assistance with Respiratory Ventilation, Less than 24 Consecutive Hours, Continuous Positive Airway Pressure (ICD-10-PCS; principal; 2025-02-25)
DX: J98.4 Other disorders of lung (principal); I50.33 Acute on chronic diastolic (congestive) heart failure; J96.21 Acute and chronic respiratory failure with hypoxia; I11.0 Hypertensive heart disease with heart failure; J44.0 Chronic obstructive pulmonary disease with (acute) lower respiratory infection; J15.69 Pneumonia due to other Gram-negative bacteria; J15.9 Unspecified bacterial pneumonia; J44.1 Chronic obstructive pulmonary disease with (acute) exacerbation; E78.5 Hyperlipidemia, unspecified; F17.210 Nicotine dependence, cigarettes, uncomplicated; G47.33 Obstructive sleep apnea (adult) (pediatric); E87.6 Hypokalemia; Z86.718 Personal history of other venous thrombosis and embolism; Z86.711 Personal history of pulmonary embolism
CPT/HCPCS: 36415; 71045; 80048; 80053; 80307; 83735; 83880; 84484; 85025; 85379; 87081; 94640; 94660; 96374; 96375; 99291; G0378; J3490